=== PATIENT | male | born 1945 | race Caucasian/White ===

== ENCOUNTER 2017-12-25 18:25 | Inpatient (IN) | payer OTHER ==
[~2017-12-25] VITALS: Ht 167.6 cm; Wt 61.7 kg
[2017-12-25 18:25] VITALS: BP_SYST 87
[~2017-12-25 18:25] MED LIST: ASPI-1155 PO; CARV25TA55 PO; CAT.1 PO; CEL250 PO; CLOP75TA2 PO; INSU100V SQ; INSU100V9 SUBCUT; LIP10 PO; LISI10TA5 PO; MYCO500T PO; PRED2.5T4 PO
[2017-12-25 20:12] LABS: BASOPHILS # (AUTO) 0.2 K/uL (0.0-0.2); BASOPHILS % (AUTO) 1.5 % (0.0-2.0); EOSINOPHILS % (AUTO) 0.1 % (0.0-4.0); HEMATOCRIT 40.6 % (36-54); HEMOGLOBIN 13.4 g/dL (14.0-18.0); LYMPHOCYTES # (AUTO) 0.9 K/uL (1.0-5.5); LYMPHOCYTES % (AUTO) 7.1 % (20.5-51.5); MEAN CORPUSCULAR HEMOGLOBIN 30 pg (27-31); MEAN CORPUSCULAR HGB CONC 33 % (32-36); MEAN CORPUSCULAR VOLUME 91 fL (79.0-98.0); MONOCYTES # (AUTO) 1.2 K/uL (0.0-1.0); NEUTROPHILS # (AUTO) 10.8 K/uL (1.8-7.7); NEUTROPHILS % (AUTO) 82.3 % (40.0-70.0); PLATELET COUNT (AUTO) 269 K/uL (130-430); RED BLOOD CELL COUNT(AUTO) 4.45 MIL/uL (4.2-6.2); RED CELL DISTRIBUTION WIDTH 13.7 % (9.0-15.0); WHITE BLOOD COUNT (AUTO) 13.1 K/uL (4.8-10.8)
[2017-12-25 20:16] LABS: ANION GAP 13 (5-15); CALCIUM 9.7 mg/dL (8.4-11.0); CHLORIDE 95 mmol/L (98-107); CREATININE 3.46 mg/dL (0.55-1.30); GLUCOSE 280 mg/dL (70-99); POTASSIUM 4.6 mmol/L (3.5-5.1); SODIUM SERUM 134 mmol/L (136-145); UREA NITROGEN, BLOOD 67 mg/dL (8-21)
[2017-12-25 20:20] LABS: ALANINE AMINOTRANSFERASE 16 U/L (12-78); ALBUMIN 3.3 g/dL (3.4-4.8); ASPARTATE AMINOTRANSFERASE 19 U/L (10-37); TOTAL BILIRUBIN 0.8 mg/dL (0.0-1.0)
[2017-12-25 20:37] LABS: PROTHROMBIN TIME 9.8 SECS (9.5-12.5)
[2017-12-25] MEDS ORDERED: NACL 0.9% 1,000 ML IV ONE (21:00)
[2017-12-25 22:26] LABS: BILIRUBIN,URINE NEGATIVE (NEGATIVE); BLOOD, URINE NEGATIVE (NEGATIVE); CLARITY/URINE CLEAR (CLEAR); COLOR,URINE YELLOW (YELLOW); GLUCOSE,URINE NEGATIVE (NEGATIVE); KETONES,URINE TRACE (NEGATIVE); LEUKOCYTE ESTERASE ,URINE TRACE (NEGATIVE); NITRITE, URINE NEGATIVE (NEGATIVE); PROTEIN URINE 1+ (NEGATIVE)
[2017-12-25] MEDS ORDERED: INSU100I24 SQ (22:44)
[2017-12-25] MEDS ORDERED: SAN100 PO (22:44)
[2017-12-25] MEDS ORDERED: MYCO500T PO (22:45)
[2017-12-25] MEDS ORDERED: CEL250 PO (22:45)
[2017-12-25 22:48] LABS: BACTERIA,URINE FEW /HPF (None Seen); RBC,URINE 0-3 /HPF (0-3)
[2017-12-26] VITALS (7 sets, daily range): BP systolic 105–158
[2017-12-26] MEDS ORDERED: NACL 0.9% 1,000 ML IV ONE (00:15)
[2017-12-26] MEDS ORDERED: ONDANSETRON HCL 4 MG/2 ML VIAL IVP PRN (00:30)
[2017-12-26] MEDS ORDERED: INSULIN LISPRO SQ PRN (00:45)
[2017-12-26] MEDS: NACL 0.9% 1,000 ML IV SCH ×4 (01:54→17:41)
[2017-12-26] MEDS ORDERED: cefTRIAXone 1 GM IVPB PREMIX 50 ML IV ONE (02:14)
[2017-12-26] MEDS: cefTRIAXone 1 GM IVPB PREMIX 50 ML IV SCH ×2 (02:22→21:26)
[2017-12-26] MEDS ORDERED: DEXTROSE 50% JECT 50 ML DISP.SYRIN IVP PRN ×3 (06:30→13:15)
[2017-12-26] MEDS ORDERED: INSULIN REGULAR, HUMAN 100 UNITS/ML, 10 ML VIAL (novoLIN R) SUBCUT PRN (06:30)
[2017-12-26] MEDS: PREDNISONE 5 MG TABLET PO SCH (08:31)
[2017-12-26] MEDS: CLOPIDOGREL BISULFATE 75 MG TABLET PO SCH (08:31)
[2017-12-26] MEDS: ASPIRIN 81 MG TAB.CHEW PO SCH (08:31)
[2017-12-26] MEDS: ATORVASTATIN 10 MG TABLET PO SCH (08:31)
[2017-12-26] MEDS: CARVEDILOL 25 MG TABLET (COREG) PO SCH ×2 (08:32→17:41)
[2017-12-26] MEDS: MYCOPHENOLATE MOFETIL 250 MG CAPSULE PO SCH ×2 (12:09→21:23)
[2017-12-26 13:40] LABS: ANION GAP 11 (5-15); CALCIUM 8.1 mg/dL (8.4-11.0); CHLORIDE 105 mmol/L (98-107); CREATININE 1.65 mg/dL (0.55-1.30); GLUCOSE 276 mg/dL (70-99); POTASSIUM 3.9 mmol/L (3.5-5.1); SODIUM SERUM 137 mmol/L (136-145); UREA NITROGEN, BLOOD 48 mg/dL (8-21)
[2017-12-26 13:57] LABS: FREE T4 (FREE THYROXINE) 0.6 ng/dL (0.6-1.6)
[2017-12-26] MEDS: cycloSPORINE 100 MG CAPSULE PO SCH (21:22)
[2017-12-27] MEDS: NACL 0.9% 1,000 ML IV SCH ×2 (03:27→13:33)
[2017-12-27] MEDS: INSULIN REGULAR, HUMAN 100 UNITS/ML, 10 ML VIAL (novoLIN R) SUBCUT PRN ×3 (06:11→20:53)
[2017-12-27 06:46] LABS: BASOPHILS % (AUTO) 0.3 % (0.0-2.0); EOSINOPHILS # (AUTO) 0.1 K/uL (0.0-0.4); EOSINOPHILS % (AUTO) 1.5 % (0.0-4.0); HEMOGLOBIN 12.6 g/dL (14.0-18.0); LYMPHOCYTES # (AUTO) 0.8 K/uL (1.0-5.5); LYMPHOCYTES % (AUTO) 12.4 % (20.5-51.5); MEAN CORPUSCULAR HEMOGLOBIN 31 pg (27-31); MEAN CORPUSCULAR HGB CONC 34 % (32-36); MEAN CORPUSCULAR VOLUME 92 fL (79.0-98.0); MONOCYTES # (AUTO) 0.8 K/uL (0.0-1.0); MONOCYTES % (AUTO) 12.4 % (1.7-9.3); NEUTROPHILS # (AUTO) 4.9 K/uL (1.8-7.7); NEUTROPHILS % (AUTO) 73.4 % (40.0-70.0); PLATELET COUNT (AUTO) 263 K/uL (130-430); RED BLOOD CELL COUNT(AUTO) 4.02 MIL/uL (4.2-6.2); RED CELL DISTRIBUTION WIDTH 13.6 % (9.0-15.0); WHITE BLOOD COUNT (AUTO) 6.6 K/uL (4.8-10.8)
[2017-12-27 06:50] LABS: ALANINE AMINOTRANSFERASE 15 U/L (12-78); ALBUMIN 2.4 g/dL (3.4-4.8); ANION GAP 6 (5-15); ASPARTATE AMINOTRANSFERASE 14 U/L (10-37); CALCIUM 8.5 mg/dL (8.4-11.0); CHLORIDE 108 mmol/L (98-107); CREATININE 1.03 mg/dL (0.55-1.30); GLUCOSE 222 mg/dL (70-99); POTASSIUM 3.8 mmol/L (3.5-5.1); SODIUM SERUM 139 mmol/L (136-145); TOTAL BILIRUBIN 0.5 mg/dL (0.0-1.0); UREA NITROGEN, BLOOD 28 mg/dL (8-21)
[2017-12-27 08:00] VITALS: BP_SYST 159
[2017-12-27] MEDS: ATORVASTATIN 10 MG TABLET PO SCH (09:33)
[2017-12-27] MEDS: PREDNISONE 5 MG TABLET PO SCH (09:33)
[2017-12-27] MEDS: CLOPIDOGREL BISULFATE 75 MG TABLET PO SCH (09:34)
[2017-12-27] MEDS: CARVEDILOL 25 MG TABLET (COREG) PO SCH ×2 (09:34→17:40)
[2017-12-27] MEDS: ASPIRIN 81 MG TAB.CHEW PO SCH (09:34)
[2017-12-27] MEDS: MYCOPHENOLATE MOFETIL 250 MG CAPSULE PO SCH ×2 (09:35→20:45)
[2017-12-27 11:35] VITALS: BP_SYST 165
[2017-12-27 13:02] LABS: URINE SODIUM, RANDOM 77 mmol/L (40-220)
[2017-12-27 15:31] VITALS: BP_SYST 167
[2017-12-27 20:00] VITALS: BP_SYST 174
[2017-12-27] MEDS: cefTRIAXone 1 GM IVPB PREMIX 50 ML IV SCH (20:45)
[2017-12-27] MEDS: cycloSPORINE 100 MG CAPSULE PO SCH (20:45)
[2017-12-28] VITALS (8 sets, daily range): BP systolic 105–188
[2017-12-28] MEDS: NACL 0.9% 1,000 ML IV SCH
[2017-12-28] MEDS ORDERED: cloNIDine HCL 0.1 MG TABLET PO PRN (00:30)
[2017-12-28] MEDS ORDERED: D5NS 1,000 ML IV SCH (00:30)
[2017-12-28] MEDS ORDERED: hydrALAZINE HCL 25 MG TABLET PO SCH ×2 (01:00→09:00)
[2017-12-28] MEDS: INSULIN REGULAR, HUMAN 100 UNITS/ML, 10 ML VIAL (novoLIN R) SUBCUT PRN ×2 (06:20→17:17)
[2017-12-28 07:24] LABS: BASOPHILS % (AUTO) 0.6 % (0.0-2.0); EOSINOPHILS # (AUTO) 0.1 K/uL (0.0-0.4); EOSINOPHILS % (AUTO) 1.2 % (0.0-4.0); HEMATOCRIT 38.2 % (36-54); HEMOGLOBIN 12.3 g/dL (14.0-18.0); LYMPHOCYTES # (AUTO) 1.1 K/uL (1.0-5.5); LYMPHOCYTES % (AUTO) 15.9 % (20.5-51.5); MEAN CORPUSCULAR HEMOGLOBIN 30 pg (27-31); MEAN CORPUSCULAR HGB CONC 32 % (32-36); MEAN CORPUSCULAR VOLUME 91 fL (79.0-98.0); MONOCYTES # (AUTO) 0.8 K/uL (0.0-1.0); MONOCYTES % (AUTO) 11.7 % (1.7-9.3); NEUTROPHILS # (AUTO) 4.7 K/uL (1.8-7.7); NEUTROPHILS % (AUTO) 70.6 % (40.0-70.0); PLATELET COUNT (AUTO) 260 K/uL (130-430); RED BLOOD CELL COUNT(AUTO) 4.18 MIL/uL (4.2-6.2); RED CELL DISTRIBUTION WIDTH 13.2 % (9.0-15.0); WHITE BLOOD COUNT (AUTO) 6.7 K/uL (4.8-10.8)
[2017-12-28 07:50] LABS: ALANINE AMINOTRANSFERASE 14 U/L (12-78); ALBUMIN 2.4 g/dL (3.4-4.8); ANION GAP 7 (5-15); ASPARTATE AMINOTRANSFERASE 14 U/L (10-37); CALCIUM 8.8 mg/dL (8.4-11.0); CHLORIDE 106 mmol/L (98-107); CREATININE 0.77 mg/dL (0.55-1.30); GLUCOSE 179 mg/dL (70-99); POTASSIUM 3.6 mmol/L (3.5-5.1); SODIUM SERUM 140 mmol/L (136-145); TOTAL BILIRUBIN 0.6 mg/dL (0.0-1.0); UREA NITROGEN, BLOOD 12 mg/dL (8-21)
[2017-12-28] MEDS: CARVEDILOL 25 MG TABLET (COREG) PO SCH ×2 (08:12→17:20)
[2017-12-28] MEDS: MYCOPHENOLATE MOFETIL 250 MG CAPSULE PO SCH (15:04)
[2017-12-28] MEDS: PREDNISONE 5 MG TABLET PO SCH (15:06)
[2017-12-28] MEDS: CLOPIDOGREL BISULFATE 75 MG TABLET PO SCH (15:06)
[2017-12-28] MEDS: ATORVASTATIN 10 MG TABLET PO SCH (15:06)
[2017-12-28] MEDS: ASPIRIN 81 MG TAB.CHEW PO SCH (15:06)
[2017-12-29 13:53] LABS: MICROALBUMIN/CREAT RATIO, UR 123.6 MG/G CRE (0.0-30.0)
[2017-12-29 13:54] LABS: MICROALBUMIN URINE RANDOM 48.2 ug/ml (NOT ESTABLISHED)
== END 2017-12-28 18:55 | disposition home or self-care (01) | DRG 689 ==
LOC: SED 18:25 → SMU 12-26 00:27
PROVIDERS: ADMIT Internal Medicine; ATTEND Internal Medicine
DX: N39.0 Urinary tract infection, site not specified (principal); N17.0 Acute kidney failure with tubular necrosis; Z94.0 Kidney transplant status; I69.351 Hemiplegia and hemiparesis following cerebral infarction affecting right dominant side; E86.0 Dehydration; E11.22 Type 2 diabetes mellitus with diabetic chronic kidney disease; E78.5 Hyperlipidemia, unspecified; J44.9 Chronic obstructive pulmonary disease, unspecified; N18.9 Chronic kidney disease, unspecified; I25.10 Atherosclerotic heart disease of native coronary artery without angina pectoris; G40.909 Epilepsy, unspecified, not intractable, without status epilepticus; D63.8 Anemia in other chronic diseases classified elsewhere; I13.10 Hypertensive heart and chronic kidney disease without heart failure, with stage 1 through stage 4 chronic kidney disease, or unspecified chronic kidney disease; Z79.4 Long term (current) use of insulin; K52.9 Noninfective gastroenteritis and colitis, unspecified
CPT/HCPCS: 36415; 71045; 76700-TC; 76770; 78226; 80048; 80053; 80158; 81000-TC; 82043; 82550-TC; 82570; 82570-TC; 82962; 83036; 83735-TC; 84100-TC; 84302-TC; 84439; 84484; 85025; 85610-TC; 87086; 93005; 96360; 96361; 97116-GP; 99285; A9537; J0696; J1815; J7030; J7042; J7502; J7512; J7517

== ENCOUNTER 2018-09-07 09:00 | Inpatient (IN) | payer OTHER ==
[~2018-09-07] VITALS: Ht 167.6 cm; Wt 71.7 kg
[2018-09-07 09:00] VITALS: BP_SYST 171
[~2018-09-07 09:00] MED LIST changes: -CAT.1 PO; +INSU100I24 SQ; -INSU100V9 SUBCUT; +SAN100 PO
--- NOTE | 2018-09-07 09:00 | NUR ---
BROUGHT BACK TO BED #8 AND TRIAGED. REPORT GIVEN TO IKE
--- NOTE | 2018-09-07 09:20 | NUR ---
Patient is awake, alert, and oriented x4. Patient is complaining of chills, weak joints, body pain since yesterday. Patient presents with generalized body aches 7/10. Patient denies nausea, vomiting, diarrhea.
--- NOTE | 2018-09-07 09:28 | NUR ---
DR SWARTZ AT BEDSIDE FOR EVALUATION
[2018-09-07] MEDS ORDERED: NACL 0.9% 1,000 ML IV ONE (09:45)
[2018-09-07 10:08] LABS: BASOPHILS # (AUTO) 0.1 K/uL (0.0-0.2); BASOPHILS % (AUTO) 0.5 % (0.0-2.0); HEMOGLOBIN 13.8 g/dL (14.0-18.0); LYMPHOCYTES # (AUTO) 0.4 K/uL (1.0-5.5); LYMPHOCYTES % (AUTO) 2.5 % (20.5-51.5); MEAN CORPUSCULAR HEMOGLOBIN 30 pg (27-31); MEAN CORPUSCULAR HGB CONC 33 % (32-36); MEAN CORPUSCULAR VOLUME 92 fL (79.0-98.0); MONOCYTES # (AUTO) 1.4 K/uL (0.0-1.0); MONOCYTES % (AUTO) 7.8 % (1.7-9.3); NEUTROPHILS # (AUTO) 15.5 K/uL (1.8-7.7); NEUTROPHILS % (AUTO) 89.2 % (40.0-70.0); PLATELET COUNT (AUTO) 161 K/uL (130-430); RED BLOOD CELL COUNT(AUTO) 4.58 MIL/uL (4.2-6.2); RED CELL DISTRIBUTION WIDTH 13.6 % (9.0-15.0); WHITE BLOOD COUNT (AUTO) 17.4 K/uL (4.8-10.8)
[2018-09-07 10:11] LABS: ANION GAP 8 (5-15); CALCIUM 9.6 mg/dL (8.4-11.0); CHLORIDE 99 mmol/L (98-107); CREATININE 1.33 mg/dL (0.55-1.30); GLUCOSE 231 mg/dL (70-99); POTASSIUM 4.1 mmol/L (3.5-5.1); SODIUM SERUM 134 mmol/L (136-145); UREA NITROGEN, BLOOD 37 mg/dL (8-21)
[2018-09-07 10:14] LABS: PROTHROMBIN TIME 9.8 SECS (9.5-12.5)
[2018-09-07 10:16] LABS: ALANINE AMINOTRANSFERASE 25 U/L (12-78); ALBUMIN 2.7 g/dL (3.4-4.8); ASPARTATE AMINOTRANSFERASE 17 U/L (10-37); TOTAL BILIRUBIN 1.5 mg/dL (0.0-1.0)
[2018-09-07 11:15] LABS: BILIRUBIN,URINE NEGATIVE (NEGATIVE); BLOOD, URINE 2+ (NEGATIVE); COLOR,URINE YELLOW (YELLOW); GLUCOSE,URINE 1+ (NEGATIVE); KETONES,URINE NEGATIVE (NEGATIVE); LEUKOCYTE ESTERASE ,URINE NEGATIVE (NEGATIVE); NITRITE, URINE NEGATIVE (NEGATIVE); PROTEIN URINE 2+ (NEGATIVE)
[2018-09-07 11:36] LABS: CLARITY/URINE SLIGHTLY HAZY (CLEAR)
[2018-09-07 11:40] LABS: BACTERIA,URINE RARE /HPF (None Seen); WBC,URINE 0-3 /HPF (0-3)
[2018-09-07] MEDS ORDERED: cefTRIAXone 1 GM IVPB PREMIX 50 ML IV ONE (11:45)
[2018-09-07] MEDS ORDERED: PRED5TAB PO (14:27)
[2018-09-07] MEDS ORDERED: INSU300I3 SQ (14:27)
[2018-09-07] MEDS ORDERED: CYCL25CA PO (14:27)
[2018-09-07] MEDS ORDERED: CHOL500052 PO (14:27)
[2018-09-07] MEDS ORDERED: LIP10 PO (14:27)
[2018-09-07] MEDS ORDERED: LISI10TA PO (14:27)
--- NOTE | 2018-09-07 14:28 | NUR ---
Medication reconciliation completed with information provided by pt. Any prior medication reconciliation on file was reviewed and corrected.
--- NOTE | 2018-09-07 14:47 | NUR ---
Patient will be admitted to care of [facility]. Admitted to Telemetry unit. Will go to room 107A. Belongings list completed. Summary report printed. Report will be given at bedside.
--- NOTE | 2018-09-07 15:00 | NUR ---
Patient transferred via rblanca, mobile monitor, 2 RNs. Report given to JESSICA Rousseau for continuation of care.
--- NOTE | 2018-09-07 15:01 | NUR ---
ADMISSION NOTE Received patient from ER via rayshawn, received report from Elza LOPEZ. Patient admitted with diagnosis of Sepsis, UTI. Patient oriented to hospital routine, call light, toileting and safety-patient verbalized understanding.
[2018-09-07 15:16] VITALS: BP_SYST 190
[2018-09-07] MEDS ORDERED: cloNIDine HCL 0.1 MG TABLET PO PRN (17:00)
[2018-09-07] MEDS ORDERED: ONDANSETRON HCL 4 MG/2 ML VIAL IVP PRN (17:45)
[2018-09-07] MEDS ORDERED: HYDROcodone/ACETAMIN 5-325 MG TAB (NORCO/ VICODIN) PO PRN (17:45)
[2018-09-07] MEDS ORDERED: ACETAMINOPHEN 325 MG TABLET PO PRN (17:45)
[2018-09-07] MEDS ORDERED: HYDROcodone/ACETAMIN 10-325 MG TAB PO PRN (17:45)
[2018-09-07] MEDS ORDERED: LORazepam 2 MG/ML VIAL IVP PRN (17:45)
[2018-09-07 17:50] VITALS: BP_SYST 170
--- NOTE | 2018-09-07 18:27 | NUR ---
CLOSING NOTE: PATIENT IS RESTING COMFORTABLY IN BED. NO S/S OF DISTRESS OR SOB. PATIENT IS ALERT AND ORIENTED. FAMILY IS AT BEDSIDE. ALL NEEDS MET DURING SHIFT. CALL LIGHT IN REACH, BED IN LOWEST POSITION, AND WILL GIVE REPORT TO NIGHT NURSE.
[2018-09-07] MEDS: INSULIN LISPRO SLIDING SCALE 100 UNITS/ML VIAL (humaLOG) SUBCUT PRN (18:42)
[2018-09-07 18:45] VITALS: BP_SYST 161
--- NOTE | 2018-09-07 18:52 | NUR ---
RENAL ULTRASOUND BEING DONE AT BEDSIDE.
--- NOTE | 2018-09-07 18:56 | NUR ---
1800 MEDICATION LISINOPRIL SCHEDULED FRO 1800 WAS JUST VERIFIED BY PHARMACY. PATIENT IS CURRENTLY RECEIVING ULTRASOUND. WILL ENDORSE MEDICATION TO BARREL RAISER.
[2018-09-07] MEDS ORDERED: D5W 1,000 ML IV PRN (19:45)
[2018-09-07] MEDS ORDERED: DEXTROSE 50%-WATER 50 ML DISP.SYRIN IVP PRN (19:45)
[2018-09-07] MEDS ORDERED: GLUCOSE 15 GM GEL (in 37.5 GM TUBE) PO PRN (19:45)
[2018-09-07 20:00] VITALS: BP_SYST 157
--- NOTE | 2018-09-07 20:00 | NUR ---
INITIAL NOTES: PATIENT IN BED EYES CLOSE,AROUSABLE,FEELING WEAK,VITAL SIGNS TAKEN. LOW GRADE FEVER. NO CHILLS. A/O X3. SALINE LOCK TO LEFT HAND. CALL LIGHT WITHIN REACH. BED IN LOW POSITION. DENIES SOB NOR PAIN.WILL MONITOR CLOSELY.SEE ASSESSMENT FOR MORE DETAILS.
--- NOTE | 2018-09-07 20:15 | NUR ---
CONSULTATION PAGED/CALLED Reason for Consultation: LUIZ Person Who was Notified: OSVALDO Consulting Physician: SANDI HERNANDEZ IS PORTUGUESE TUTOR Offshore Wind Operations Manager Specialty: Ordering Physician: MARINA
--- NOTE | 2018-09-07 20:27 | NUR ---
CONSULTATION PAGED/CALLED Reason for Consultation: HYPERTENSION Person Who was Notified: RAVI Consulting Physician: PALIWAL. Baig Powder Blender And Pourer Specialty: Ordering Physician: PALIWAL. Dwyer
--- NOTE | 2018-09-07 20:28 | NUR ---
CONSULTATION PAGED/CALLED Reason for Consultation: SEPSIS/UTI Person Who was Notified: OSVALDO Consulting Physician: JB Processing Assistant Specialty: ID Ordering Physician: MARINA
[2018-09-07] MEDS ORDERED: NEORAL PO SCH (21:00)
[2018-09-07] MEDS ORDERED: cycloSPORINE 100 MG CAPSULE PO SCH (21:00)
[2018-09-07] MEDS ORDERED: LISINOPRIL 5 MG TABLET PO SCH (21:00)
[2018-09-07] MEDS: MYCOPHENOLATE MOFETIL 250 MG CAPSULE PO SCH (22:02)
[2018-09-07] MEDS: CARVEDILOL 25 MG TABLET (COREG) PO SCH (22:03)
[2018-09-07] MEDS: LISINOPRIL 10 MG TABLET (PRINIVIL) PO SCH (22:06)
[2018-09-07] MEDS: ACETAMINOPHEN 325 MG TABLET PO PRN (22:07)
--- NOTE | 2018-09-07 22:20 | NUR ---
ALL DUE MEDS GIVEN AFTER EDUCATING PATIENT EFFECTS AND SIDE EFFECTS. ROOM AIR.
--- NOTE | 2018-09-08 00:30 | NUR ---
PATIENT SLEEPING THIS TIME SNORING.
[2018-09-08 01:24] VITALS: BP_SYST 113
--- NOTE | 2018-09-08 04:33 | NUR ---
RECEIVED A +BLOOD CULTURE FROM ANAEROBIC, GRAM NEG RODS @9449 09/07/18 FROM [facility] . JOB RECRUITER AWARE.
[2018-09-08 04:35] VITALS: BP_SYST 158
--- NOTE | 2018-09-08 05:07 | NUR ---
PAGED SHAYAN CERVANTES.
--- NOTE | 2018-09-08 05:15 | NUR ---
Yuliya CERVANTES, CALLED BACK,INFORMED POSITIVE BLOOD CULTURE DRAWN YESTERDAY 09/07/18 @0930 GRAM NEG. RODS. ORDERED TO INFORM DR. HERNANDEZ THIS MORNING.
[2018-09-08] MEDS: INSULIN LISPRO SLIDING SCALE 100 UNITS/ML VIAL (humaLOG) SUBCUT PRN ×4 (06:29→20:10)
[2018-09-08 06:46] LABS: BASOPHILS % (AUTO) 0.5 % (0.0-2.0); EOSINOPHILS % (AUTO) 0.3 % (0.0-4.0); HEMOGLOBIN 13.6 g/dL (14.0-18.0); LYMPHOCYTES # (AUTO) 0.4 K/uL (1.0-5.5); LYMPHOCYTES % (AUTO) 4.2 % (20.5-51.5); MEAN CORPUSCULAR HEMOGLOBIN 30 pg (27-31); MEAN CORPUSCULAR HGB CONC 33 % (32-36); MEAN CORPUSCULAR VOLUME 92 fL (79.0-98.0); MONOCYTES # (AUTO) 1.4 K/uL (0.0-1.0); MONOCYTES % (AUTO) 13.9 % (1.7-9.3); NEUTROPHILS # (AUTO) 8.2 K/uL (1.8-7.7); NEUTROPHILS % (AUTO) 81.1 % (40.0-70.0); PLATELET COUNT (AUTO) 151 K/uL (130-430); RED BLOOD CELL COUNT(AUTO) 4.46 MIL/uL (4.2-6.2); WHITE BLOOD COUNT (AUTO) 10.1 K/uL (4.8-10.8)
[2018-09-08 07:00] LABS: ANION GAP 5 (5-15); CALCIUM 9.2 mg/dL (8.4-11.0); CHLORIDE 101 mmol/L (98-107); CREATININE 1.21 mg/dL (0.55-1.30); GLUCOSE 203 mg/dL (70-99); PHOSPHORUS 3.1 mg/dL (2.7-4.5); POTASSIUM 3.9 mmol/L (3.5-5.1); SODIUM SERUM 135 mmol/L (136-145); UREA NITROGEN, BLOOD 29 mg/dL (8-21)
--- NOTE | 2018-09-08 07:00 | NUR ---
CLOSING: NO ACUTE CARDIOPULMONARY DISTRESS. NO S/S OF HYPOGLYCEMIA. ALL NEEDS WERE MET. WILL ENDORSE CARE TO AM RN .HAD SLIGHT CHILLS AT 0400 AFTER CHANGING WT GOWN.
--- NOTE | 2018-09-08 07:15 | NUR ---
OPENING NOTE Patient resting in the bed. No acute distress. Respiration even and unlabored. AAO x 4. Denied of pain or chills at this time. Skin warm and dry to touch. SL intact to left hand, no redness, no swelling. Per patient his nephrology is Dr. Velazquez not Dr. Tucker, will notify Dr. Bernardo. Discussed the safety issue, use call light when needs help, and plan of care, verbally understanding. Safety measure maintained. Call light within reached. Bed locked in low position, side rails up. Will continue to monitor.
--- NOTE | 2018-09-08 07:19 | NUR ---
PAGED PAGED SHAYAN VIGIL AT [phone] SPOKE WITH KATERYNA.
--- NOTE | 2018-09-08 07:28 | NUR ---
CALLED BACK FROM SHAYAN CERVANTES Received the call back grom Dr. Bernardo. Informed to Dr. Bernardo per patient his nephrology is Jae Franks not Dr. Tucker. Dr. Bernardo with order nephrology consult of Jae Franks instead of Dr. Tucker. Order noted and carried out.
--- NOTE | 2018-09-08 07:39 | NUR ---
CONSULTATION PAGED REASON FOR CONSULTATION: REQUESTING DR: DR OQUENDO A CONSULTING DR: DR DE LA GARZA SPOKE WITH YEN TOMAS IS LEAD ELECTRICAL CONTROLS ENGINEER
[2018-09-08 08:12] LABS: C-REACTIVE PROTEIN QUANT 22.2 mg/dL (0-0.5)
--- NOTE | 2018-09-08 08:25 | NUR ---
PAGED PAGED NASEEM GREEN AT [phone] SPOKE WITH JOE.
[2018-09-08 08:31] LABS: ERYTHROCYTE SEDIMENTATION RATE 31 MM/HR (0-15)
[2018-09-08] MEDS: cefTRIAXone 1 GM IVPB PREMIX 50 ML IV SCH (08:59)
[2018-09-08] MEDS: CHOLECALCIFEROL (VITAMIN D3) 2,000 UNIT TABLET PO SCH (08:59)
[2018-09-08] MEDS: ASPIRIN 81 MG TAB.CHEW PO SCH (08:59)
[2018-09-08] MEDS: PREDNISONE 5 MG TABLET PO SCH (09:00)
[2018-09-08] MEDS ORDERED: ATORVASTATIN 10 MG TABLET PO SCH (09:00)
[2018-09-08] MEDS ORDERED: INSULIN GLARGINE HUM REC ANLOG 48 UNIT SQ SCH (09:00)
[2018-09-08] MEDS ORDERED: NON-FORMULARY MEDICATION (Prednisone 5 MG) PO SCH (09:00)
[2018-09-08] MEDS: CARVEDILOL 25 MG TABLET (COREG) PO SCH ×2 (09:00→20:11)
[2018-09-08] MEDS: CLOPIDOGREL BISULFATE 75 MG TABLET PO SCH (09:00)
[2018-09-08] MEDS: ATORVASTATIN 20 MG TABLET PO SCH (09:01)
[2018-09-08] MEDS: MYCOPHENOLATE MOFETIL 250 MG CAPSULE PO SCH ×2 (09:01→20:11)
[2018-09-08] MEDS: INSULIN GLARGINE 100 UNITS/ML 10 ML VIAL SUBCUT SCH (09:04)
[2018-09-08 10:38] VITALS: BP_SYST 148
--- NOTE | 2018-09-08 10:38 | NUR ---
2ND PAGE OUT TO NASEEM HAMMER AT [phone] SPOKE WITH SIRENA.
--- NOTE | 2018-09-08 10:39 | NUR ---
SEEN AND EXAMINED BY VIRIDIANA CERVANTES. WILL CHECK ORDER.
[2018-09-08] MEDS ORDERED: amLODIPine BESYLATE 5 MG TABLET PO ONE (11:00)
--- NOTE | 2018-09-08 11:27 | NUR ---
JB YOU DEEPTHI CALLED BACK REGARDING POSITIVE BLOOD CULTURE Received the call back from Dr. Meyers, reported to Jb You patient with positive blood culture of gram negative rods from anaerobic bottles. Patient on Rocephin 1gm IVPB Q24hr, dose already given this morning. Dr. Meyers stated will come to see the patient.
--- NOTE | 2018-09-08 11:55 | NUR ---
SEEN AND EXAMINED BY NASEEM JACOBSON. WILL CHECK ORDER.
[2018-09-08] MEDS ORDERED: GENTAMICIN 100 mg/50 mL NS 50 ML IV ONE (12:00)
[2018-09-08 12:01] VITALS: BP_SYST 147
--- NOTE | 2018-09-08 13:10 | NUR ---
ULTRASOUND OF DOPPLER TO BILATERAL LOWER EXTREMITIES DONE AT BEDSIDE.
--- NOTE | 2018-09-08 13:37 | NUR ---
Dietitian Recommendations * Recommend cardiac, CCHO diet w/ Glucerna BID (ONS provides an additional 440 kcal/day and 20 gm protein/day) LP, RD Please refer to Nutrition Assessment for details.
[2018-09-08 15:17] VITALS: BP_SYST 145
--- NOTE | 2018-09-08 15:25 | NUR ---
ROUND Patient resting in the bed comfortable. No acute distress. at bedside. Safety measure maintained. Call light within reached. Continue to monitor.
[2018-09-08] MEDS: LISINOPRIL 10 MG TABLET (PRINIVIL) PO SCH (17:41)
--- NOTE | 2018-09-08 18:00 | NUR ---
SHAYAN CERVANTES IN THE UNIT SHOWN THE RESULT OF ULTRASOUND DROPPER OF BILATERAL LOWER EXTREMITIES.
--- NOTE | 2018-09-08 18:05 | NUR ---
SEEN ANS EXAMINED BY SHAYAN CERVANTES WITH ORDER D/C TELE, CHANGE TO MED SURG.
--- NOTE | 2018-09-08 18:57 | NUR ---
CLOSING NOTE Patient resting in the bed. No acute distress. Respiration even and unlabored. Denied of pain or chills. Skin warm and dry to touch. SL intact to left hand, no redness, no swelling. at bedside. All needs met. Safety measure maintained. Call light within reached. Bed locked in low position, side rails up. Will endorse to night nurse.
--- NOTE | 2018-09-08 19:30 | NUR ---
Initial Notes Received handoff report from offgoing nurse at the bedside. Patient is awake and alert, resting comfortably in bed. No SOB, no acute distress, no complaints of pain at this time. Bed is locked, in the lowest position, 2x side rails up, bed alarm is on. Urinal and care are at the bedside within reach. Call light is within reach. Encouraged patient to call for assistance. Will continue with plan of care.
[2018-09-08 20:00] VITALS: BP_SYST 138
[2018-09-08] MEDS: ACETAMINOPHEN 325 MG TABLET PO PRN (20:12)
--- NOTE | 2018-09-08 21:31 | NUR ---
Patient is resting comfortably in bed with eyes closed. No SOB, no acute distress, no signs of pain or facial grimacing noted. Breathing even and unlabored with visible chest rise and fall noted. Call light within reach.
--- NOTE | 2018-09-09 | NUR ---
Patient requested for midnight snacks. Provided patient with leon crackers and apple juice. Patient also wanted cranberry juice, but currently we are out of stock. Patient was understanding, and stated apple juice is okay.
[2018-09-09 01:13] VITALS: BP_SYST 104
--- NOTE | 2018-09-09 01:43 | NUR ---
Patient resting comfortably in bed, eyes closed. Breathing even and unlabored with visible chest rise and fall noted. No SOB, no acute distress, no signs of pain or facial grimacing noted. Bed is locked, in the lowest position, 2x side rails up. Call light within reach.
--- NOTE | 2018-09-09 04:07 | NUR ---
Patient spilled water on his gown. Assisted patient with partial bed bath. Patient is now clean and dry, Gown changed due to soilage. Now resting comfortably in bed. Call light within reach. Encouraged patient to call for assistance.
[2018-09-09] MEDS: INSULIN LISPRO SLIDING SCALE 100 UNITS/ML VIAL (humaLOG) SUBCUT PRN ×4 (06:10→21:08)
[2018-09-09] MEDS: ACETAMINOPHEN 325 MG TABLET PO PRN (06:11)
[2018-09-09 06:30] LABS: BASOPHILS % (AUTO) 0.4 % (0.0-2.0); EOSINOPHILS # (AUTO) 0.1 K/uL (0.0-0.4); EOSINOPHILS % (AUTO) 1.2 % (0.0-4.0); HEMATOCRIT 43.4 % (36-54); HEMOGLOBIN 14.2 g/dL (14.0-18.0); LYMPHOCYTES # (AUTO) 0.8 K/uL (1.0-5.5); LYMPHOCYTES % (AUTO) 9.4 % (20.5-51.5); MEAN CORPUSCULAR HEMOGLOBIN 30 pg (27-31); MEAN CORPUSCULAR HGB CONC 33 % (32-36); MEAN CORPUSCULAR VOLUME 92 fL (79.0-98.0); MONOCYTES # (AUTO) 1.5 K/uL (0.0-1.0); MONOCYTES % (AUTO) 17.5 % (1.7-9.3); PLATELET COUNT (AUTO) 181 K/uL (130-430); RED BLOOD CELL COUNT(AUTO) 4.73 MIL/uL (4.2-6.2); RED CELL DISTRIBUTION WIDTH 13.7 % (9.0-15.0); WHITE BLOOD COUNT (AUTO) 8.3 K/uL (4.8-10.8)
--- NOTE | 2018-09-09 06:32 | NUR ---
Closing Notes Patient resting comfortably in bed, awake and alert. No SOB, no acute distress. Recently medicated for headache pain, see eMAR. IV site dressing is clean and dry. Bed is locked, in the lowest position, 2x side rails up, bed alarm is on. Call light within reach. Fall and safety precautions maintained. All needs have been met during this shift. Will endorse care to oncoming dayshift nurse.
[2018-09-09 07:06] LABS: ANION GAP 4 (5-15); CALCIUM 9.5 mg/dL (8.4-11.0); CHLORIDE 102 mmol/L (98-107); CREATININE 1.14 mg/dL (0.55-1.30); GLUCOSE 219 mg/dL (70-99); PHOSPHORUS 3.5 mg/dL (2.7-4.5); POTASSIUM 3.8 mmol/L (3.5-5.1); SODIUM SERUM 135 mmol/L (136-145); UREA NITROGEN, BLOOD 32 mg/dL (8-21)
--- NOTE | 2018-09-09 07:10 | NUR ---
received patient asleep but verbalized weak still. breathing even and unlabored.
[2018-09-09 07:45] LABS: C-REACTIVE PROTEIN QUANT 15.1 mg/dL (0-0.5)
[2018-09-09 08:09] VITALS: BP_SYST 155
--- NOTE | 2018-09-09 09:00 | NUR ---
medication given as ordered. no iv access. pull out by the patient.
[2018-09-09] MEDS: ASPIRIN 81 MG TAB.CHEW PO SCH (09:07)
[2018-09-09] MEDS: CHOLECALCIFEROL (VITAMIN D3) 2,000 UNIT TABLET PO SCH (09:08)
[2018-09-09] MEDS: CARVEDILOL 25 MG TABLET (COREG) PO SCH ×2 (09:08→21:01)
[2018-09-09] MEDS: CLOPIDOGREL BISULFATE 75 MG TABLET PO SCH (09:09)
[2018-09-09] MEDS: ATORVASTATIN 20 MG TABLET PO SCH (09:09)
[2018-09-09] MEDS: amLODIPine BESYLATE 5 MG TABLET PO SCH (09:09)
[2018-09-09] MEDS: PREDNISONE 5 MG TABLET PO SCH (09:10)
[2018-09-09] MEDS: MYCOPHENOLATE MOFETIL 250 MG CAPSULE PO SCH ×2 (09:11→21:02)
[2018-09-09] MEDS: cefTRIAXone 1 GM IVPB PREMIX 50 ML IV SCH (09:19)
[2018-09-09] MEDS: INSULIN GLARGINE 100 UNITS/ML 10 ML VIAL SUBCUT SCH (09:20)
[2018-09-09 09:36] LABS: ERYTHROCYTE SEDIMENTATION RATE 35 MM/HR (0-15)
--- NOTE | 2018-09-09 10:00 | NUR ---
Dee RN placed a new iv access on the left hand #22.
[2018-09-09 10:16] LABS: NEUTROPHILS % (AUTO) 71.5 % (40.0-70.0)
--- NOTE | 2018-09-09 12:00 | NUR ---
eating lunch. latest bs 206mg/dl. coverage given.
[2018-09-09 12:35] VITALS: BP_SYST 138
--- NOTE | 2018-09-09 14:00 | NUR ---
resting no pain noted.
--- NOTE | 2018-09-09 16:00 | NUR ---
asleep no distress noted.
[2018-09-09 16:42] VITALS: BP_SYST 123
[2018-09-09] MEDS: LISINOPRIL 10 MG TABLET (PRINIVIL) PO SCH (17:54)
--- NOTE | 2018-09-09 18:00 | NUR ---
latest bs is 206mg/dl. coverage given.
--- NOTE | 2018-09-09 19:00 | NUR ---
closing patient is stable. all needs are met. bed in low position. still with saline lock left hand dry/intact. bed in low position. urinating at the urinal. gianna urine. call lights wihin reach. safety precautions maintained.
--- NOTE | 2018-09-09 19:15 | NUR ---
endorsed to incoming nurse Rhea LOPEZ
--- NOTE | 2018-09-09 20:15 | NUR ---
INITIAL NOTES: RECEIVED REPORT AND PATIENT FROM JESSICA MADERA.PATIENT WAS RESTING QUIETELY BUT EASILY AROUSED.DENIES PAIN NOR SOB. FEELING STILL WEAK ,BETTER COMPARED ON ADMISSION.CALL LIGHT WITHIN REACH. BED ALARM ON. BED IN LOW POSITION. WILL MONITOR CLOSELY.
[2018-09-09 20:20] VITALS: BP_SYST 159
--- NOTE | 2018-09-09 21:35 | NUR ---
ACCU CHECK: BLOOD SUGAR 291MG/DL. COVERAGE GIVEN PER SLIDING SCALE.CONVERSANT THIS TIME.
--- NOTE | 2018-09-09 22:20 | NUR ---
NUTRITION: ANA CRACKERS SUGAR FREE JELLO GIVEN FOR SNACKS. EDUCATED ON S/S OF HYPOGLYCEMIA,RECEPTIVE.
[2018-09-10 00:13] VITALS: BP_SYST 132
--- NOTE | 2018-09-10 00:30 | NUR ---
ROUNDS: PATIENT RESTING WITH EYES CLOSE. BREATHING PATTERN REGULAR. CALL LIGHT WITHIN REACH. VOIDED VIA URINAL.
--- NOTE | 2018-09-10 03:00 | NUR ---
ROUNDS: SLEEPING WITH SNORE. BREATHING REGULARLY.
[2018-09-10 06:20] LABS: BASOPHILS % (AUTO) 0.2 % (0.0-2.0); EOSINOPHILS # (AUTO) 0.1 K/uL (0.0-0.4); EOSINOPHILS % (AUTO) 1.1 % (0.0-4.0); HEMATOCRIT 41.7 % (36-54); LYMPHOCYTES # (AUTO) 0.8 K/uL (1.0-5.5); LYMPHOCYTES % (AUTO) 9.6 % (20.5-51.5); MEAN CORPUSCULAR HEMOGLOBIN 30 pg (27-31); MEAN CORPUSCULAR HGB CONC 34 % (32-36); MEAN CORPUSCULAR VOLUME 90 fL (79.0-98.0); MONOCYTES # (AUTO) 1.1 K/uL (0.0-1.0); NEUTROPHILS # (AUTO) 6.2 K/uL (1.8-7.7); NEUTROPHILS % (AUTO) 76.1 % (40.0-70.0); PLATELET COUNT (AUTO) 207 K/uL (130-430); RED BLOOD CELL COUNT(AUTO) 4.61 MIL/uL (4.2-6.2); RED CELL DISTRIBUTION WIDTH 13.6 % (9.0-15.0); WHITE BLOOD COUNT (AUTO) 8.2 K/uL (4.8-10.8)
--- NOTE | 2018-09-10 06:40 | NUR ---
CLOSING: BLOOD SUGAR THIS AM IS 139MG/DL. NO COVERAGE.NO ACUTE CARDIOPULMONARY DISTRESS.SLEPT AT LONG INTERVALS. ALL NEEDS WERE ATTENDED.VOIDED FREELY DARK CHEO.NO S/S OF HYPOGLYCEMIA. WILL ENDORSE CARE TO AM RN . SALINE LOCK PATENT.
[2018-09-10 06:52] LABS: ANION GAP 3 (5-15); CALCIUM 9.9 mg/dL (8.4-11.0); CHLORIDE 101 mmol/L (98-107); CREATININE 1.14 mg/dL (0.55-1.30); GLUCOSE 149 mg/dL (70-99); POTASSIUM 3.8 mmol/L (3.5-5.1); SODIUM SERUM 134 mmol/L (136-145); UREA NITROGEN, BLOOD 34 mg/dL (8-21)
[2018-09-10 06:56] LABS: ALANINE AMINOTRANSFERASE 25 U/L (12-78); ALBUMIN 2.3 g/dL (3.4-4.8); ASPARTATE AMINOTRANSFERASE 15 U/L (10-37); C-REACTIVE PROTEIN QUANT 8.2 mg/dL (0-0.5); TOTAL BILIRUBIN 0.6 mg/dL (0.0-1.0)
[2018-09-10 08:00] VITALS: BP_SYST 169
--- NOTE | 2018-09-10 08:00 | NUR ---
AM NOTES IN BED AWAKE, STILL FEELS WEAK, DENIES ANY CHEST PAIN OR SHORTNESS OF BREATH. NO ACUTE DISTRESS NOTED. SAFETY PRECAUTION OBSERVED. CALL LIGHT WITHIN REACH. ENC TO CALL FOR HELP NEEDED. WILL MONITOR.
[2018-09-10 08:01] LABS: ERYTHROCYTE SEDIMENTATION RATE 28 MM/HR (0-15)
[2018-09-10] MEDS: cefTRIAXone 1 GM IVPB PREMIX 50 ML IV SCH (08:49)
[2018-09-10] MEDS: PREDNISONE 5 MG TABLET PO SCH (08:50)
[2018-09-10] MEDS: CLOPIDOGREL BISULFATE 75 MG TABLET PO SCH (08:50)
[2018-09-10] MEDS: ASPIRIN 81 MG TAB.CHEW PO SCH (08:50)
[2018-09-10] MEDS: CHOLECALCIFEROL (VITAMIN D3) 2,000 UNIT TABLET PO SCH (08:50)
[2018-09-10] MEDS: ATORVASTATIN 20 MG TABLET PO SCH (08:50)
[2018-09-10] MEDS: CARVEDILOL 25 MG TABLET (COREG) PO SCH ×2 (08:51→20:38)
[2018-09-10] MEDS: amLODIPine BESYLATE 5 MG TABLET PO SCH (08:51)
[2018-09-10] MEDS: MYCOPHENOLATE MOFETIL 250 MG CAPSULE PO SCH ×3 (08:52→20:39)
[2018-09-10] MEDS: INSULIN GLARGINE 100 UNITS/ML 10 ML VIAL SUBCUT SCH (08:53)
[2018-09-10 11:30] VITALS: BP_SYST 145
--- NOTE | 2018-09-10 11:30 | NUR ---
notes- In bed, resting. denies any pain. blood sugar is 232, covered with insulin as ordered. patient does not need anything at this time. Enc to call foe help as needed.
[2018-09-10] MEDS: INSULIN LISPRO SLIDING SCALE 100 UNITS/ML VIAL (humaLOG) SUBCUT PRN ×3 (11:49→20:44)
--- NOTE | 2018-09-10 12:09 | NUR ---
Notes- physical therapy at bedside. working with patient at this time.
--- NOTE | 2018-09-10 14:45 | NUR ---
notes- resting in bed, denies any pain or discomfort. Seen by DR. Bernardo at bedside.
--- NOTE | 2018-09-10 15:35 | NUR ---
DC Planning: Notified pt's /Eliz for dcp to snf, spouse requested pt dc to [facility] , . >> Faxed the referral package to [facility] intake # [phone], tel # [phone]. Cm to f/u, Addendum: 09/10/18 at 1619 by Raf Hughes RN >> Per Nori at [facility]: the pt is accepted, assigned room # 26 A , bed available now. RN to report # [phone]. JESSICA Boland made aware. She will call dr. Bernardo for the final dc order and to arrange ambulance once received the order. Dc package delivered to [facility] unit.
[2018-09-10 15:37] VITALS: BP_SYST 136
--- NOTE | 2018-09-10 16:50 | NUR ---
Notes- Spoke to Dr. Bernardo and made aware that patient's is accepted [facility]. MD stated to discharge patient in AM.
[2018-09-10] MEDS: LISINOPRIL 10 MG TABLET (PRINIVIL) PO SCH (17:43)
--- NOTE | 2018-09-10 17:52 | NUR ---
Notes- Per , patient's take cellcept 750mg 2x a day, morning and evening.
--- NOTE | 2018-09-10 18:28 | NUR ---
Notes- In bed, eating dinner. denies any pain or discomfort. afebrile. family at bedside. Cellcept dosage change as ordered.
--- NOTE | 2018-09-10 19:30 | NUR ---
ROUNDS PATIENT IN BED, AWAKE, ALERT, ORIENTED, NOT IN DISTRESS, VITALS STABLE. DENIES ANY PAIN AND DISCOMFORT AT THIS TIME. ASSESSMENT DONE AND DOCUMENTED. SEE FLOWSHEET. NEEDS ATTENDED TO. SAFETY AND FALL PRECAUTION MEASURES IN PLACED. CALL LIGHT PLACED WITHIN REACH.
[2018-09-10 20:00] VITALS: BP_SYST 156
--- NOTE | 2018-09-10 21:03 | NUR ---
ACCU CHECK ACCU CHECK DONE, BLOOD SUGAR 207 WITH 4 UNITS HUMALOG GIVEN SUBCU PER SLIDING SCALE. WILL CONTINUE TO MONITOR.
--- NOTE | 2018-09-11 00:14 | NUR ---
PATIENT RESTING: Patient resting quietly. No acute distress noted. Vital signs within normal range.
--- NOTE | 2018-09-11 02:11 | NUR ---
ROUNDS PATIENT ASLEEP, RESPIRATIONS EVEN AND UNLABORED, NO SIGNS OF ANY PAIN AND DISCOMFORT NOTED. WILL CONTINUE TO MONITOR.
[2018-09-11 02:26] VITALS: BP_SYST 138
--- NOTE | 2018-09-11 04:23 | NUR ---
ROUNDS PATIENT ASLEEP, NOT IN DISTRESS, NO SIGNS OF ANY PAIN AND DISCOMFORT NOTED. WILL CONTINUE TO MONITOR.
--- NOTE | 2018-09-11 05:59 | NUR ---
CLOSING NOTES PATIENT AWAKE, VITALS STABLE, NO PAIN AT THIS TIME. ACCU CHECK DONE, BLOOD SUGAR 83, DENIES ANY SIGNS AND SYMPTOMS OF HYPOGLYCEMIA. ORANGE JUICE AND ANA CRACKERS OFFERED. ALL NEEDS ATTENDED TO. CALL LIGHT PLACED WITHIN REACH.
[2018-09-11 06:58] LABS: BASOPHILS % (AUTO) 0.4 % (0.0-2.0); EOSINOPHILS # (AUTO) 0.1 K/uL (0.0-0.4); EOSINOPHILS % (AUTO) 1.2 % (0.0-4.0); HEMATOCRIT 44.6 % (36-54); HEMOGLOBIN 14.6 g/dL (14.0-18.0); LYMPHOCYTES # (AUTO) 1.3 K/uL (1.0-5.5); LYMPHOCYTES % (AUTO) 15.1 % (20.5-51.5); MEAN CORPUSCULAR HEMOGLOBIN 30 pg (27-31); MEAN CORPUSCULAR HGB CONC 33 % (32-36); MEAN CORPUSCULAR VOLUME 91 fL (79.0-98.0); MONOCYTES % (AUTO) 11.8 % (1.7-9.3); NEUTROPHILS # (AUTO) 6.1 K/uL (1.8-7.7); NEUTROPHILS % (AUTO) 71.5 % (40.0-70.0); PLATELET COUNT (AUTO) 251 K/uL (130-430); RED BLOOD CELL COUNT(AUTO) 4.88 MIL/uL (4.2-6.2); RED CELL DISTRIBUTION WIDTH 13.5 % (9.0-15.0); WHITE BLOOD COUNT (AUTO) 8.5 K/uL (4.8-10.8)
[2018-09-11] MEDS ORDERED: AMLO5TAB4 PO (07:04)
[2018-09-11] MEDS ORDERED: ROCPM1 IV (07:04)
[2018-09-11 07:30] LABS: ANION GAP 6 (5-15); C-REACTIVE PROTEIN QUANT 4.6 mg/dL (0-0.5); CALCIUM 9.7 mg/dL (8.4-11.0); CHLORIDE 104 mmol/L (98-107); GLUCOSE 90 mg/dL (70-99); PHOSPHORUS 3.5 mg/dL (2.7-4.5); POTASSIUM 3.7 mmol/L (3.5-5.1); SODIUM SERUM 138 mmol/L (136-145); UREA NITROGEN, BLOOD 32 mg/dL (8-21)
--- NOTE | 2018-09-11 07:44 | NUR ---
Notes- In bed, awake. Denies any pain or discomfort. no distress noted. Seen by Dr. Bernardo and ordered discharge. Patient aware and agreeable. safety precaution observed. call light in reach. will monitor.
[2018-09-11 07:50] VITALS: BP_SYST 147
[2018-09-11 08:09] VITALS: BP_SYST 147
[2018-09-11 08:22] LABS: ERYTHROCYTE SEDIMENTATION RATE 24 MM/HR (0-15)
[2018-09-11] MEDS: ASPIRIN 81 MG TAB.CHEW PO SCH (09:26)
[2018-09-11] MEDS: ATORVASTATIN 20 MG TABLET PO SCH (09:26)
[2018-09-11] MEDS: CHOLECALCIFEROL (VITAMIN D3) 2,000 UNIT TABLET PO SCH (09:26)
[2018-09-11] MEDS: cefTRIAXone 1 GM IVPB PREMIX 50 ML IV SCH (09:26)
[2018-09-11] MEDS: PREDNISONE 5 MG TABLET PO SCH (09:27)
[2018-09-11] MEDS: amLODIPine BESYLATE 5 MG TABLET PO SCH (09:27)
[2018-09-11] MEDS: CLOPIDOGREL BISULFATE 75 MG TABLET PO SCH (09:27)
[2018-09-11] MEDS: CARVEDILOL 25 MG TABLET (COREG) PO SCH (09:28)
[2018-09-11] MEDS: INSULIN GLARGINE 100 UNITS/ML 10 ML VIAL SUBCUT SCH (09:29)
[2018-09-11] MEDS: MYCOPHENOLATE MOFETIL 250 MG CAPSULE PO SCH ×2 (10:07)
--- NOTE | 2018-09-11 10:19 | NUR ---
Notes- Report given at [facility] staff.
--- NOTE | 2018-09-11 10:56 | NUR ---
Notes- Discharge patient to [facility]. Denies any pain or discomfort. new iv started on the left arm and removed old IV. discharge packet given to ambulance staff. v/s stable. arm band removed.
[2018-09-12] MEDS ORDERED: MYCO500T PO (03:49)
[2018-09-12] MEDS ORDERED: LISI2.5T48 PO (03:53)
[2018-09-12] MEDS ORDERED: BISA10SU61 RC (03:57)
[2018-09-12] MEDS ORDERED: AMLO5TAB4 PO (03:59)
[2018-09-12] MEDS ORDERED: INSU100V38 SQ (04:02)
--- NOTE | 2018-09-12 16:16 | NUR ---
PHYSICAL THERAPY CO-SIGN The Physical Therapy Progress Notes documented by Pipe Organ Mechanic Apprentice have been reviewed([place] 09/11/18) Reviewed/Co-Signed by: Susana Hendrickson PT Documentation Done by:HUMBERTO BRIONES TEAM LEAD PROGRESSING W/ GAIT ENDURANCE; 09/11/18 [id number] Pt WAS D/C'd 09/11/18; RE ADMIT 09/12/18 Addendum: 09/12/18 at 1617 by Susana Hendrickson PT Amended: Links added.
== END 2018-09-11 10:50 | DRG 871 ==
LOC: SED 09:00 → STU 14:04 → SMU 09-08 17:45
PROVIDERS: ADMIT Preventive Medicine Preventive Medicine/Occupational Environmental Medicine; ATTEND Preventive Medicine Preventive Medicine/Occupational Environmental Medicine
DX: A41.50 Gram-negative sepsis, unspecified (principal); E43 Unspecified severe protein-calorie malnutrition; E87.1 Hypo-osmolality and hyponatremia; I69.351 Hemiplegia and hemiparesis following cerebral infarction affecting right dominant side; N10 Acute pyelonephritis; N17.9 Acute kidney failure, unspecified; D64.9 Anemia, unspecified; E11.21 Type 2 diabetes mellitus with diabetic nephropathy; E11.22 Type 2 diabetes mellitus with diabetic chronic kidney disease; E11.51 Type 2 diabetes mellitus with diabetic peripheral angiopathy without gangrene; E11.65 Type 2 diabetes mellitus with hyperglycemia; E78.5 Hyperlipidemia, unspecified; I13.10 Hypertensive heart and chronic kidney disease without heart failure, with stage 1 through stage 4 chronic kidney disease, or unspecified chronic kidney disease; N18.3 Chronic kidney disease, stage 3 (moderate); J44.9 Chronic obstructive pulmonary disease, unspecified; Z79.899 Other long term (current) drug therapy; Z79.82 Long term (current) use of aspirin; Z68.25 Body mass index [BMI] 25.0-25.9, adult
CPT/HCPCS: 36415; 71045; 76770; 80048; 80053; 81000-TC; 82962; 83605; 83735-TC; 84100-TC; 84484; 85025; 85610-TC; 85651-TC; 85730-TC; 86140; 86710; 87040-TC; 87086; 87186-TC; 93005; 93923; 96361; 96365; 97116-GP; 97530-GP; 99285; G0378; J0696; J1580; J1815; J7030; J7502; J7512; J7517

== ENCOUNTER 2018-09-12 00:33 | Inpatient (IN) | payer OTHER ==
[~2018-09-12] VITALS: Ht 170.2 cm; Wt 68.0 kg
[~2018-09-12 00:33] MED LIST changes: +AMLO5TAB4 PO; +CHOL500052 PO; +CYCL25CA PO; +INSU300I3 SQ; +LISI10TA PO; +PRED5TAB PO; +ROCPM1 IV
[2018-09-12 01:00] VITALS: BP_SYST 148
--- NOTE | 2018-09-12 01:00 | NUR ---
Pt placed to ER bed 05. Pt BIB family members from [facility] requesting that he be admitted. Pt was admitted to [facility] 09/07/18 for UTI then discharged yesterday to [facility] for antibiotic therapy. 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 Pt arrives with 22 GA PIV to [facility] with placement date 09/11/2018.
--- NOTE | 2018-09-12 01:30 | NUR ---
Dr. Elizabeth at bedside.
--- NOTE | 2018-09-12 02:30 | NUR ---
Pt denies c/o pain or discomfort, no needs verbalized at this time. Family members at bedside.
[2018-09-12] MEDS ORDERED: cefTRIAXone 1 GM in D5W 50 ML IV SCH ×2 (03:45→09:00)
[2018-09-12] MEDS ORDERED: MYCO500T PO (03:49)
--- NOTE | 2018-09-12 03:50 | NUR ---
Patient will be admitted to care of Renzo Anderson. Admitted to Med/Surg Obs unit. Will go to room 135. Belongings list completed. Summary report printed. Report will be given at bedside.
[2018-09-12] MEDS ORDERED: LISI2.5T48 PO (03:53)
[2018-09-12] MEDS ORDERED: BISA10SU61 RC (03:57)
[2018-09-12 03:59] VITALS: BP_SYST 159
[2018-09-12] MEDS ORDERED: AMLO5TAB4 PO (03:59)
--- NOTE | 2018-09-12 03:59 | NUR ---
ADMISSION NOTE Received patient from ER via [place] rio. Patient admitted with diagnosis of DEBILITY. Patient oriented to hospital routine, call light, toileting and safety-patient verbalized understanding.
--- NOTE | 2018-09-12 04:01 | NUR ---
Initial note: Received report from ER nurse JESSICA Freitas over phone. Patient arrived via wheelchair, able to transfer to bed with assist. Patient ambulates with assist and cane. 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 IV present to left AC, site is patent and benign. Will continue with plan of care.
[2018-09-12] MEDS ORDERED: INSU100V38 SQ (04:02)
--- NOTE | 2018-09-12 06:02 | NUR ---
Closing note: Patient is resting in bed, no distress. Breathing is even and unlabored on room air. No complaints of pain, shortness of breath, or dizziness. Call light with patient. All needs met. Will endorse to dayshift RN.
[2018-09-12 09:14] VITALS: BP_SYST 163
--- NOTE | 2018-09-12 09:15 | NUR ---
Elevated blood pressure Dr. Tova greenwood denies any headache no dizziness , according to patient that his normal blood pressure in the morning , all home meds continued, discussed plan of care , safety/fall precaution verbalized understanding.
[2018-09-12] MEDS ORDERED: BISACODYL 10 MG/SUPPOSITORY RC PRN (09:30)
[2018-09-12] MEDS ORDERED: MYCOPHENOLATE MOFETIL 250 MG CAPSULE PO ONE (09:30)
[2018-09-12] MEDS: cefTRIAXone 1 GM in D5W 50 ML IV SCH (09:42)
[2018-09-12] MEDS ORDERED: DEXTROSE 50%-WATER 50 ML DISP.SYRIN IVP PRN (09:45)
[2018-09-12] MEDS ORDERED: PREDNISONE 5 MG TABLET PO ONE (09:45)
[2018-09-12] MEDS ORDERED: ASPIRIN 81 MG TAB.CHEW PO ONE (09:45)
[2018-09-12] MEDS ORDERED: CHOLECALCIFEROL (VITAMIN D3) 2,000 UNIT TABLET PO ONE (09:45)
[2018-09-12] MEDS ORDERED: GLUCOSE 15 GM GEL (in 37.5 GM TUBE) PO PRN (09:45)
[2018-09-12] MEDS ORDERED: CARVEDILOL 25 MG TABLET (COREG) PO ONE (09:45)
[2018-09-12] MEDS ORDERED: ATORVASTATIN 10 MG TABLET PO ONE (09:45)
[2018-09-12] MEDS ORDERED: D5W 1,000 ML IV PRN (09:45)
[2018-09-12] MEDS ORDERED: amLODIPine BESYLATE 5 MG TABLET PO ONE (09:45)
[2018-09-12] MEDS ORDERED: cycloSPORINE 100 MG CAPSULE PO ONE (09:45)
[2018-09-12] MEDS ORDERED: CLOPIDOGREL BISULFATE 75 MG TABLET PO ONE (09:45)
[2018-09-12] MEDS ORDERED: INSULIN GLARGINE 100 UNITS/ML 10 ML VIAL SUBCUT ONE (10:00)
--- NOTE | 2018-09-12 11:54 | NUR ---
Nutrition Update Matt Scale 17 noted. Pt admitted for debility. Diet: [facility] BMI: 23.5 kg/m2 RD to follow per nutrition care standards.
[2018-09-12] MEDS: INSULIN LISPRO SLIDING SCALE 100 UNITS/ML VIAL (humaLOG) SUBCUT PRN ×2 (11:56→18:04)
[2018-09-12 12:38] VITALS: BP_SYST 137
--- NOTE | 2018-09-12 14:28 | NUR ---
PATIENT RESTING: Patient resting quietly. No acute distress noted. Vital signs within normal range.
[2018-09-12 17:18] VITALS: BP_SYST 133
[2018-09-12] MEDS ORDERED: HYDROcodone/ACETAMIN 10-325 MG TAB PO PRN (17:30)
[2018-09-12] MEDS ORDERED: ACETAMINOPHEN 325 MG TABLET PO PRN (17:30)
[2018-09-12] MEDS ORDERED: ONDANSETRON HCL 4 MG/2 ML VIAL IVP PRN (17:30)
[2018-09-12] MEDS ORDERED: LORazepam 2 MG/ML VIAL IVP PRN (17:30)
[2018-09-12] MEDS ORDERED: HYDROcodone/ACETAMIN 5-325 MG TAB (NORCO/ VICODIN) PO PRN (17:30)
--- NOTE | 2018-09-12 17:49 | NUR ---
CONSULT ID UTI/BACTEREMIA DR MUHAMMAD [phone] S/W JENNIFER CLAIRE
--- NOTE | 2018-09-12 17:51 | NUR ---
CONSULT NEPHROLOGY RENAL FAILURE DR TOMAS [phone] S/W RUSSELL CLAIRE
--- NOTE | 2018-09-12 19:45 | NUR ---
Initial note: Received report from krysten RN. Patient is awake in bed, no distress. Tolerating room air. IV present to left AC, site is patent and benign. Right upper AV shunt present, but is not being used for dialysis. Call light with patient. Safety and fall precautions in place. Will continue with plan of care.
[2018-09-12 20:40] VITALS: BP_SYST 160
[2018-09-12] MEDS ORDERED: LISINOPRIL 5 MG TABLET PO SCH (21:00)
[2018-09-12] MEDS: MYCOPHENOLATE MOFETIL 250 MG CAPSULE PO SCH (21:13)
[2018-09-12] MEDS: cycloSPORINE 100 MG CAPSULE PO SCH (21:13)
[2018-09-12] MEDS: NORMAL SALINE 5 ML DISP.SYRIN IVF SCH (21:15)
[2018-09-12] MEDS: CARVEDILOL 25 MG TABLET (COREG) PO SCH (21:15)
--- NOTE | 2018-09-12 21:15 | NUR ---
Blood sugar: Patient's blood sugar is 145. No insulin administered per sliding scale.
--- NOTE | 2018-09-12 23:11 | NUR ---
Rounds: Patient is awake in bed. Provided patient with crackers per request. Dressing change done for right forearm skin tear. Safety and fall precautions in place. Call light with patient, will continue to monitor.
[2018-09-13 01:05] VITALS: BP_SYST 153
--- NOTE | 2018-09-13 02:19 | NUR ---
Rounds: Patient is resting in bed, no distress. Breathing is even and unlabored on room air. Call light with patient. Will continue monitoring.
--- NOTE | 2018-09-13 04:50 | NUR ---
Rounds: Patient is sleeping, no distress. Respirations even and unlabored on room air. Call light with patient. Safety and fall precautions in place. Will continue monitoring.
[2018-09-13] MEDS: NORMAL SALINE 5 ML DISP.SYRIN IVF SCH ×2 (06:24→14:25)
[2018-09-13 06:45] LABS: BASOPHILS % (AUTO) 0.4 % (0.0-2.0); EOSINOPHILS # (AUTO) 0.1 K/uL (0.0-0.4); EOSINOPHILS % (AUTO) 0.7 % (0.0-4.0); HEMATOCRIT 40.9 % (36-54); HEMOGLOBIN 13.6 g/dL (14.0-18.0); LYMPHOCYTES # (AUTO) 1.7 K/uL (1.0-5.5); LYMPHOCYTES % (AUTO) 16.6 % (20.5-51.5); MEAN CORPUSCULAR HEMOGLOBIN 30 pg (27-31); MEAN CORPUSCULAR HGB CONC 33 % (32-36); MEAN CORPUSCULAR VOLUME 90 fL (79.0-98.0); MONOCYTES # (AUTO) 0.7 K/uL (0.0-1.0); MONOCYTES % (AUTO) 6.8 % (1.7-9.3); NEUTROPHILS # (AUTO) 7.9 K/uL (1.8-7.7); NEUTROPHILS % (AUTO) 75.5 % (40.0-70.0); PLATELET COUNT (AUTO) 274 K/uL (130-430); RED BLOOD CELL COUNT(AUTO) 4.53 MIL/uL (4.2-6.2); RED CELL DISTRIBUTION WIDTH 13.5 % (9.0-15.0); WHITE BLOOD COUNT (AUTO) 10.4 K/uL (4.8-10.8)
--- NOTE | 2018-09-13 06:49 | NUR ---
Closing note: Patient is awake in bed watching TV, no distress. Tolerating room air. IV site to left AC is patent and benign. Blood sugar this AM is 125. All needs met. Safety, fall precautions in place. Will endorse to krysten RN.
[2018-09-13 07:04] LABS: ALANINE AMINOTRANSFERASE 31 U/L (12-78); ALBUMIN 2.2 g/dL (3.4-4.8); ANION GAP 5 (5-15); ASPARTATE AMINOTRANSFERASE 17 U/L (10-37); C-REACTIVE PROTEIN QUANT 2.2 mg/dL (0-0.5); CALCIUM 9.4 mg/dL (8.4-11.0); CHLORIDE 102 mmol/L (98-107); CREATININE 0.96 mg/dL (0.55-1.30); GLUCOSE 157 mg/dL (70-99); PHOSPHORUS 3.2 mg/dL (2.7-4.5); POTASSIUM 3.6 mmol/L (3.5-5.1); SODIUM SERUM 135 mmol/L (136-145); TOTAL BILIRUBIN 0.6 mg/dL (0.0-1.0); UREA NITROGEN, BLOOD 31 mg/dL (8-21)
--- NOTE | 2018-09-13 07:45 | NUR ---
AM ROUNDS: Oriented x4. Denies discomfort. Has his own cane at the bedside, able to use the bathroom independently. Patient states he feels better. Old right upper shunt has no bruit heared on auscultation. Call light within reach.
[2018-09-13 07:50] LABS: ERYTHROCYTE SEDIMENTATION RATE 15 MM/HR (0-15)
[2018-09-13 08:05] VITALS: BP_SYST 155
[2018-09-13] MEDS ORDERED: PREDNISONE 5 MG TABLET PO SCH (09:00)
[2018-09-13] MEDS ORDERED: ATORVASTATIN 10 MG TABLET PO SCH (09:00)
[2018-09-13] MEDS ORDERED: amLODIPine BESYLATE 5 MG TABLET PO SCH (09:00)
[2018-09-13] MEDS ORDERED: CHOLECALCIFEROL (VITAMIN D3) 2,000 UNIT TABLET PO SCH (09:00)
[2018-09-13] MEDS ORDERED: ASPIRIN 81 MG TAB.CHEW PO SCH (09:00)
[2018-09-13] MEDS ORDERED: INSULIN GLARGINE 100 UNITS/ML 10 ML VIAL SUBCUT SCH (09:00)
[2018-09-13] MEDS ORDERED: CLOPIDOGREL BISULFATE 75 MG TABLET PO SCH (09:00)
[2018-09-13] MEDS: cefTRIAXone 1 GM in D5W 50 ML IV SCH (09:21)
[2018-09-13] MEDS: CARVEDILOL 25 MG TABLET (COREG) PO SCH (09:24)
[2018-09-13] MEDS: cycloSPORINE 100 MG CAPSULE PO SCH (09:25)
[2018-09-13] MEDS: MYCOPHENOLATE MOFETIL 250 MG CAPSULE PO SCH (09:26)
--- NOTE | 2018-09-13 10:31 | NUR ---
Discharge Planning: LAP faxed pt order to [facility] (f [phone] p [phone]) no PT or IV antibiotics prescription available at this time, DCP will faxed when available. Addendum: 09/13/18 at 1127 by Alejandra Patterson DP to [facility] (f [phone] p [phone]) DCP spoke to Nick, he will speak the DON. DIANAP asked if IV medications will be set up by [facility] and Nick stated if patient excepted yes. [facility] faxed [facility] ( f [phone] p [phone]) DCP to follow up. Addendum: 09/13/18 at 1526 by Alejandra Patterson DP [facility] (f [phone] p [phone]) [facility] ( f [phone] p [phone]) [facility] (f [phone] p [phone]) Nurse made aware patient is set to discharge.
--- NOTE | 2018-09-13 11:26 | NUR ---
DC PLANNING Discussed dc plan w Dr Sánchez in [facility]. Ok to dc home w home health for IV Rocephin 1gm QD x7days.
[2018-09-13] MEDS: INSULIN LISPRO SLIDING SCALE 100 UNITS/ML VIAL (humaLOG) SUBCUT PRN (11:36)
[2018-09-13 12:00] VITALS: BP_SYST 145
--- NOTE | 2018-09-13 15:01 | NUR ---
DC PLANNING Discussed dc plan w pt @ bedside, informed working on getting home health for IV abx/PT & fww. States wants to dc home w home health, & wants new FWW, that the one he has is old. While speaking w pt [employer] came in & delivered fww to pt.
--- NOTE | 2018-09-13 15:55 | NUR ---
BS check Patient requested to have his blood sugar checked early, Blood sugar result 68, rechecked Blood sugar result 72. Gave patient orange juice. Patient sitting up in bed at this time. Will continue to monitor
[2018-09-13 16:00] VITALS: BP_SYST 143
--- NOTE | 2018-09-13 16:40 | NUR ---
BS check followup Blood sugar result 101 at this time, patient in stable condition at this time.
--- NOTE | 2018-09-13 17:21 | NUR ---
IV START FOR HOME IV ANTIBIOTICS: Started gauge 22 on the left forearm. Blood return noted on first attempt. secured with tegaderm and tape.
--- NOTE | 2018-09-13 18:11 | NUR ---
end of shift: Needs attended. No change in assessment. Patient is for DC home today, waiting for son to pick him up.
--- NOTE | 2018-09-13 19:05 | NUR ---
D/C Patient Patient given medication reconciliation form and D/C instructions. Exit Care provided. Patient verbalized understanding. MD discussed with patient the results and treatment provided. Ambulatory with steady gait for discharge to home. Patient in stable condition, ID band removed. All belongings sent with patient.
--- NOTE | 2018-09-16 15:50 | NUR ---
Discharge Follow Up Phone Call TERRAZZO INSTALLER phoned patient, . Patient stated he was doing okay. He is happy to be at home and was happy with his care at [facility]. [facility] has been out and administering the IV antibiotics He stated PT will start next week, which he is satisfied about. The nurse is assessing and assisting him. He has been in contact with his PCP and will call when antibiotic course is complete and will make the follow up appointment. No questions or concerns.
== END 2018-09-13 18:58 | disposition home health service (06) | DRG 871 ==
LOC: SED 00:33 → OBSVTOIN 03:14 → SMU 03:14
PROVIDERS: ADMIT Preventive Medicine Preventive Medicine/Occupational Environmental Medicine; ATTEND Preventive Medicine Preventive Medicine/Occupational Environmental Medicine
DX: A41.51 Sepsis due to Escherichia coli [E. coli] (principal); N18.6 End stage renal disease; E43 Unspecified severe protein-calorie malnutrition; N10 Acute pyelonephritis; I12.0 Hypertensive chronic kidney disease with stage 5 chronic kidney disease or end stage renal disease; E87.0 Hyperosmolality and hypernatremia; I69.351 Hemiplegia and hemiparesis following cerebral infarction affecting right dominant side; D64.9 Anemia, unspecified; E11.22 Type 2 diabetes mellitus with diabetic chronic kidney disease; E78.5 Hyperlipidemia, unspecified; E11.65 Type 2 diabetes mellitus with hyperglycemia; Z79.82 Long term (current) use of aspirin; Z79.899 Other long term (current) drug therapy; Z79.02 Long term (current) use of antithrombotics/antiplatelets; Z68.23 Body mass index [BMI] 23.0-23.9, adult
CPT/HCPCS: 36415; 80053; 82962; 83735-TC; 84100-TC; 85025; 85651-TC; 86140; 87081; 99285; J0696; J1815; J7060; J7502; J7512; J7517

== ENCOUNTER 2020-11-17 07:31 | Emergency (ER) | payer OTHER ==
[~2020-11-17] VITALS: Ht 167.6 cm; Wt 72.6 kg
[~2020-11-17 07:31] MED LIST changes: -AMLO5TAB4 PO; +ATOR20TA64 PO; +CARV12.548 PO; -CARV25TA55 PO; -CYCL25CA PO; -INSU100I24 SQ; +INSU100V38 SQ; -INSU300I3 SQ; +LEVO750T45 PO; -LIP10 PO; -LISI10TA5 PO; +PRED10TA PO; -PRED2.5T4 PO; -PRED5TAB PO; -ROCPM1 IV
--- NOTE | 2020-11-17 07:35 | NUR ---
Placed in room 7 . Placed on engagement director, blood pressure machine and pulse oximeter. To gown for exam. Side rails up.
[2020-11-17 07:39] VITALS: BP_SYST 199
--- NOTE | 2020-11-17 07:40 | NUR ---
Pt bib to ER with c/o gen weakness and fatigue x1 week, pt reports having trouble walking. V/S stable, no acute distress noted.
--- NOTE | 2020-11-17 07:45 | NUR ---
ER Dr. Murphy at bedside examining patient.
[2020-11-17] MEDS ORDERED: KETOROLAC TROMETHAMINE 30 MG VIAL IM ONE (08:00)
--- NOTE | 2020-11-17 08:00 | NUR ---
Lab at bedside for blood draw.
[2020-11-17 08:22] LABS: BASOPHILS # (AUTO) 0.1 K/uL (0.0-0.2); BASOPHILS % (AUTO) 0.5 % (0.0-2.0); EOSINOPHILS % (AUTO) 0.4 % (0.0-4.0); HEMATOCRIT 40.4 % (36-54); HEMOGLOBIN 13.2 g/dL (14.0-18.0); LYMPHOCYTES # (AUTO) 0.7 K/uL (1.0-5.5); LYMPHOCYTES % (AUTO) 7.4 % (20.5-51.5); MEAN CORPUSCULAR HEMOGLOBIN 30 pg (27-31); MEAN CORPUSCULAR HGB CONC 33 % (32-36); MEAN CORPUSCULAR VOLUME 91 fL (79.0-98.0); MONOCYTES # (AUTO) 0.5 K/uL (0.0-1.0); MONOCYTES % (AUTO) 5.1 % (1.7-9.3); NEUTROPHILS # (AUTO) 8.6 K/uL (1.8-7.7); NEUTROPHILS % (AUTO) 86.6 % (40.0-70.0); PLATELET COUNT (AUTO) 177 K/uL (130-430); RED BLOOD CELL COUNT(AUTO) 4.42 MIL/uL (4.2-6.2); RED CELL DISTRIBUTION WIDTH 13.4 % (9.0-15.0); WHITE BLOOD COUNT (AUTO) 9.9 K/uL (4.8-10.8)
[2020-11-17 08:32] LABS: ANION GAP 6 (5-15); CALCIUM 9.8 mg/dL (8.4-11.0); CHLORIDE 106 mmol/L (98-107); CREATININE 1.43 mg/dL (0.55-1.30); GLUCOSE 224 mg/dL (70-99); POTASSIUM 3.8 mmol/L (3.5-5.1); SODIUM SERUM 143 mmol/L (136-145); UREA NITROGEN, BLOOD 23 mg/dL (8-21)
[2020-11-17 08:35] LABS: PROTHROMBIN TIME 10.4 SECS (9.5-12.5)
--- NOTE | 2020-11-17 08:35 | NUR ---
Medication reconciliation completed with information provided by pt. Any prior medication reconciliation on file was reviewed and corrected.
[2020-11-17 08:38] LABS: ALANINE AMINOTRANSFERASE 12 U/L (12-78); ASPARTATE AMINOTRANSFERASE 14 U/L (10-37); TOTAL BILIRUBIN 0.7 mg/dL (0.0-1.0)
[2020-11-17 08:42] LABS: BILIRUBIN,URINE NEGATIVE (NEGATIVE); BLOOD, URINE NEGATIVE (NEGATIVE); CLARITY/URINE CLOUDY (CLEAR); COLOR,URINE YELLOW (YELLOW); GLUCOSE,URINE 2+ (NEGATIVE); KETONES,URINE NEGATIVE (NEGATIVE); LEUKOCYTE ESTERASE ,URINE TRACE (NEGATIVE); NITRITE, URINE NEGATIVE (NEGATIVE); PROTEIN URINE 3+ (NEGATIVE)
[2020-11-17 08:44] LABS: ACETONE, SERUM NEGATIVE (NEGATIVE)
[2020-11-17 09:00] LABS: BACTERIA,URINE RARE /HPF (None Seen); RBC,URINE 0-3 /HPF (0-3); TRIPLE PHOSPHATE CRYSTAL,UR 0-10 /HPF (None Seen); URINE AMORPHOUS PHOSPHATES 3+ /HPF (None Seen)
[2020-11-17] MEDS ORDERED: HYDR-3917 PO (09:34)
--- NOTE | 2020-11-17 09:50 | NUR ---
Patient given written and verbal discharge instructions and verbalizes understanding. ER MD discussed with patient the results and treatment provided. Patient in stable condition. ID arm band removed. Rx of [place] given. Patient educated on pain management and to follow up with PMD. Pain Scale 0. Opportunity for questions provided and answered. Medication side effect fact sheet provided.
== END 2020-11-17 09:50 | disposition home or self-care (01) ==
LOC: SED 07:31
DX: R53.1 Weakness (principal); M54.30 Sciatica, unspecified side; I10 Essential (primary) hypertension; E11.9 Type 2 diabetes mellitus without complications; Z79.899 Other long term (current) drug therapy
CPT/HCPCS: 36415; 71045; 80053; 81000; 82009; 82550; 83605; 84484; 85025; 85610; 85730; 96372; 99284; J1885; 76376; 99285

== ENCOUNTER 2021-01-05 07:45 | Emergency (ER) | payer OTHER ==
[~2021-01-05] VITALS: Ht 170.2 cm; Wt 63.5 kg
[2021-01-05 07:45] VITALS: BP_SYST 119
[~2021-01-05 07:45] MED LIST changes: +HYDR-3917 PO; -LEVO750T45 PO
[2021-01-05 08:42] LABS: BASOPHILS % (AUTO) 0.7 % (0.0-2.0); EOSINOPHILS # (AUTO) 0.1 K/uL (0.0-0.4); HEMATOCRIT 36.5 % (36-54); HEMOGLOBIN 12.2 g/dL (14.0-18.0); LYMPHOCYTES # (AUTO) 1.2 K/uL (1.0-5.5); LYMPHOCYTES % (AUTO) 16.8 % (20.5-51.5); MEAN CORPUSCULAR HEMOGLOBIN 31 pg (27-31); MEAN CORPUSCULAR HGB CONC 33 % (32-36); MEAN CORPUSCULAR VOLUME 92 fL (79.0-98.0); MONOCYTES # (AUTO) 0.6 K/uL (0.0-1.0); MONOCYTES % (AUTO) 8.9 % (1.7-9.3); NEUTROPHILS # (AUTO) 5.1 K/uL (1.8-7.7); NEUTROPHILS % (AUTO) 72.6 % (40.0-70.0); PLATELET COUNT (AUTO) 200 K/uL (130-430); RED BLOOD CELL COUNT(AUTO) 3.98 MIL/uL (4.2-6.2); RED CELL DISTRIBUTION WIDTH 13.5 % (9.0-15.0)
[2021-01-05 08:56] LABS: ANION GAP 4 (5-15); CALCIUM 10.8 mg/dL (8.4-11.0); CHLORIDE 102 mmol/L (98-107); CREATININE 1.63 mg/dL (0.55-1.30); GLUCOSE 150 mg/dL (70-99); POTASSIUM 4.4 mmol/L (3.5-5.1); SODIUM SERUM 138 mmol/L (136-145); UREA NITROGEN, BLOOD 37 mg/dL (8-21)
[2021-01-05 09:00] LABS: PROTHROMBIN TIME 10.5 SECS (9.5-12.5)
[2021-01-05 09:02] LABS: ALANINE AMINOTRANSFERASE 15 U/L (12-78); ALBUMIN 2.8 g/dL (3.4-4.8); ASPARTATE AMINOTRANSFERASE 11 U/L (10-37); TOTAL BILIRUBIN 0.6 mg/dL (0.0-1.0)
[2021-01-05 09:09] LABS: ACETONE, SERUM NEGATIVE (NEGATIVE)
--- NOTE | 2021-01-05 09:14 | NUR ---
BROUGHT BACK TO BED #5 VIA WHEELCHAIR, PLACED IN BED AND REPORT GIVEN TO SANDRA
--- NOTE | 2021-01-05 09:14 | NUR ---
MD HAND ASSESSING PT AT BEDSIDE.
--- NOTE | 2021-01-05 10:33 | NUR ---
PT LABS HAVE BEEN REVIEWED BY , AND PT IS NOW BEING PREPARED FOR DC HOME.
[2021-01-05 10:52] VITALS: BP_SYST 119
--- NOTE | 2021-01-05 10:52 | NUR ---
Patient given written and verbal discharge instructions and verbalizes understanding. ER MD discussed with patient the results and treatment provided. Patient in stable condition. ID arm band removed. given. Patient educated on pain management and to follow up with PMD. Pain Scale 0/10. Opportunity for questions provided and answered. Medication side effect fact sheet provided.
== END 2021-01-05 10:52 | disposition home or self-care (01) ==
LOC: SED 07:45
DX: R53.1 Weakness (principal); I10 Essential (primary) hypertension; E11.9 Type 2 diabetes mellitus without complications; Z79.82 Long term (current) use of aspirin; Z79.899 Other long term (current) drug therapy
CPT/HCPCS: 36415; 71045; 80053; 82009; 82550; 83605; 84484; 85025; 85610-TC; 85730-TC; 93005; 99285

== ENCOUNTER 2021-01-13 19:52 | Inpatient (IN) | payer OTHER, SELFPAY ==
[~2021-01-13] VITALS: Ht 167.6 cm; Wt 64.9 kg
[2021-01-13 20:10] VITALS: BP_SYST 162
[2021-01-13 20:24] LABS: BASOPHILS % (AUTO) 0.3 % (0.0-2.0); EOSINOPHILS % (AUTO) 0.1 % (0.0-4.0); HEMATOCRIT 34.6 % (36-54); HEMOGLOBIN 11.7 g/dL (14.0-18.0); MEAN CORPUSCULAR HEMOGLOBIN 31 pg (27-31); MEAN CORPUSCULAR HGB CONC 34 % (32-36); MEAN CORPUSCULAR VOLUME 91 fL (79.0-98.0); MONOCYTES # (AUTO) 0.5 K/uL (0.0-1.0); MONOCYTES % (AUTO) 7.3 % (1.7-9.3); NEUTROPHILS # (AUTO) 5.7 K/uL (1.8-7.7); NEUTROPHILS % (AUTO) 78.3 % (40.0-70.0); PLATELET COUNT (AUTO) 176 K/uL (130-430); RED CELL DISTRIBUTION WIDTH 13.5 % (9.0-15.0); WHITE BLOOD COUNT (AUTO) 7.3 K/uL (4.8-10.8)
[2021-01-13] MEDS ORDERED: LR 1,000 ML IV ONE (20:30)
[2021-01-13 20:32] LABS: PROTHROMBIN TIME 10.9 SECS (9.5-12.5)
[2021-01-13 20:33] LABS: ANION GAP 1 (5-15); CHLORIDE 104 mmol/L (98-107); CREATININE 1.78 mg/dL (0.55-1.30); GLUCOSE 148 mg/dL (70-99); POTASSIUM 4.2 mmol/L (3.5-5.1); SODIUM SERUM 139 mmol/L (136-145); UREA NITROGEN, BLOOD 29 mg/dL (8-21)
[2021-01-13 20:48] LABS: ALANINE AMINOTRANSFERASE 10 U/L (12-78); ALBUMIN 2.8 g/dL (3.4-4.8); ASPARTATE AMINOTRANSFERASE 9 U/L (10-37); BILIRUBIN,DIRECT 0.3 mg/dL (0.0-0.3); FREE T4 (FREE THYROXINE) 1.1 ng/dl (0.8-1.5); LIPASE 44 U/L (73-393); THYROID STIMULATING HORMONE 0.41 uIu/mL (0.36-3.74); TOTAL BILIRUBIN 0.9 mg/dL (0.0-1.0)
[2021-01-13 20:51] LABS: CALCIUM 13.4 mg/dL (8.4-11.0)
[2021-01-13] MEDS ORDERED: NACL 0.9% 2,000 ML IV ONE (21:00)
[2021-01-13 21:12] LABS: PHOSPHORUS 2.9 mg/dL (2.7-4.5); URIC ACID 8.9 mg/dL (2.4-7.0)
[2021-01-13] MEDS: NACL 0.9% 1,000 ML IV SCH (22:15)
[2021-01-14] MEDS: INSULIN REGULAR, HUMAN 100 UNITS/ML, 10 ML VIAL (humuLIN R) SUBCUT SCH ×5 (03:00→20:44)
[2021-01-14] MEDS ORDERED: ONDANSETRON HCL 4 MG/2 ML VIAL IVP ONE (05:15)
[2021-01-14] MEDS ORDERED: fentaNYL CITRATE/PF 100 MCG/2 ML AMP IVP ONE (05:15)
[2021-01-14] MEDS ORDERED: fentaNYL CITRATE/PF 100 MCG/2 ML AMP ONE (05:41)
[2021-01-14 06:44] LABS: BASOPHILS % (AUTO) 0.6 % (0.0-2.0); EOSINOPHILS % (AUTO) 0.6 % (0.0-4.0); HEMATOCRIT 33.9 % (36-54); HEMOGLOBIN 11.9 g/dL (14.0-18.0); LYMPHOCYTES # (AUTO) 1.2 K/uL (1.0-5.5); LYMPHOCYTES % (AUTO) 17.9 % (20.5-51.5); MEAN CORPUSCULAR HEMOGLOBIN 32 pg (27-31); MEAN CORPUSCULAR HGB CONC 35 % (32-36); MEAN CORPUSCULAR VOLUME 91 fL (79.0-98.0); MONOCYTES # (AUTO) 0.7 K/uL (0.0-1.0); MONOCYTES % (AUTO) 9.8 % (1.7-9.3); NEUTROPHILS % (AUTO) 71.1 % (40.0-70.0); PLATELET COUNT (AUTO) 173 K/uL (130-430); RED BLOOD CELL COUNT(AUTO) 3.73 MIL/uL (4.2-6.2); RED CELL DISTRIBUTION WIDTH 13.3 % (9.0-15.0)
[2021-01-14] MEDS: NACL 0.9% 1,000 ML IV SCH ×3 (07:09→20:30)
[2021-01-14 08:09] LABS: BILIRUBIN,URINE NEGATIVE (NEGATIVE); BLOOD, URINE NEGATIVE (NEGATIVE); CLARITY/URINE SLIGHTLY HAZY (CLEAR); COLOR,URINE YELLOW (YELLOW); GLUCOSE,URINE NEGATIVE (NEGATIVE); KETONES,URINE NEGATIVE (NEGATIVE); LEUKOCYTE ESTERASE ,URINE NEGATIVE (NEGATIVE); NITRITE, URINE NEGATIVE (NEGATIVE); PH,URINE 7.5 (5.0-8.0); PROTEIN URINE 2+ (NEGATIVE)
[2021-01-14 09:48] LABS: ANION GAP 1 (5-15); CALCIUM 11.7 mg/dL (8.4-11.0); CHLORIDE 106 mmol/L (98-107); CREATININE 1.39 mg/dL (0.55-1.30); GLUCOSE 120 mg/dL (70-99); POTASSIUM 3.6 mmol/L (3.5-5.1); SODIUM SERUM 141 mmol/L (136-145); TOTAL BILIRUBIN 0.9 mg/dL (0.0-1.0); UREA NITROGEN, BLOOD 23 mg/dL (8-21)
[2021-01-14 09:49] LABS: ALANINE AMINOTRANSFERASE 15 U/L (12-78); ALBUMIN 2.5 g/dL (3.4-4.8); ASPARTATE AMINOTRANSFERASE 11 U/L (10-37)
[2021-01-14 09:59] VITALS: BP_SYST 117
[2021-01-14 12:20] LABS: BACTERIA,URINE FEW /HPF (None Seen); RBC,URINE 0-3 /HPF (0-3); WBC,URINE 0-3 /HPF (0-3)
[2021-01-14 12:21] LABS: MUCUS,URINE 1+ /LPF (None Seen); URINE AMORPHOUS PHOSPHATES 1+ /HPF (None Seen)
[2021-01-14 16:38] VITALS: BP_SYST 122
[2021-01-14] MEDS ORDERED: ASPIRIN 81 MG TAB.CHEW PO ONE (17:00)
[2021-01-14] MEDS ORDERED: CLOPIDOGREL BISULFATE 75 MG TABLET PO ONE (17:00)
[2021-01-14] MEDS ORDERED: predniSONE 10 MG TABLET PO ONE (17:00)
[2021-01-14] MEDS ORDERED: LISINOPRIL 10 MG TABLET (PRINIVIL) PO ONE (17:00)
[2021-01-14] MEDS ORDERED: mycophenolate mofetiL 250 MG CAPSULE PO ONE ×2 (17:00)
[2021-01-14] MEDS ORDERED: CARVEDILOL 12.5 MG TABLET (COREG) PO ONE (17:00)
[2021-01-14] MEDS ORDERED: ATORVASTATIN 20 MG TABLET PO ONE (17:00)
[2021-01-14] MEDS ORDERED: MAGNESIUM SULFATE 3 GM in D5W 100 ML IV ONE (17:15)
[2021-01-14] MEDS: cycloSPORINE 100 MG CAPSULE PO SCH (17:41)
[2021-01-14 19:00] VITALS: BP_SYST 158
[2021-01-14 20:00] VITALS: BP_SYST 158
[2021-01-14] MEDS: INSULIN GLARGINE 100 UNITS/ML 10 ML VIAL SUBCUT SCH (20:45)
[2021-01-15] VITALS: BP_SYST 145
[2021-01-15] MEDS: NACL 0.9% 1,000 ML IV SCH ×4 (00:55→21:40)
[2021-01-15 01:11] LABS: BILIRUBIN,URINE NEGATIVE (NEGATIVE); BLOOD, URINE NEGATIVE (NEGATIVE); CLARITY/URINE SL CLOUDY (CLEAR); COLOR,URINE YELLOW (YELLOW); GLUCOSE,URINE NEGATIVE (NEGATIVE); KETONES,URINE NEGATIVE (NEGATIVE); LEUKOCYTE ESTERASE ,URINE NEGATIVE (NEGATIVE); NITRITE, URINE NEGATIVE (NEGATIVE); PROTEIN URINE 2+ (NEGATIVE)
[2021-01-15] MEDS: INSULIN REGULAR, HUMAN 100 UNITS/ML, 10 ML VIAL (humuLIN R) SUBCUT SCH ×5 (03:00→21:48)
[2021-01-15 07:07] LABS: BASOPHILS % (AUTO) 0.2 % (0.0-2.0); HEMATOCRIT 34.4 % (36-54); HEMOGLOBIN 11.7 g/dL (14.0-18.0); LYMPHOCYTES # (AUTO) 0.8 K/uL (1.0-5.5); LYMPHOCYTES % (AUTO) 12.2 % (20.5-51.5); MEAN CORPUSCULAR HEMOGLOBIN 31 pg (27-31); MEAN CORPUSCULAR HGB CONC 34 % (32-36); MEAN CORPUSCULAR VOLUME 90 fL (79.0-98.0); MONOCYTES # (AUTO) 0.4 K/uL (0.0-1.0); MONOCYTES % (AUTO) 5.9 % (1.7-9.3); NEUTROPHILS # (AUTO) 5.6 K/uL (1.8-7.7); NEUTROPHILS % (AUTO) 81.7 % (40.0-70.0); PLATELET COUNT (AUTO) 174 K/uL (130-430); RED BLOOD CELL COUNT(AUTO) 3.81 MIL/uL (4.2-6.2); RED CELL DISTRIBUTION WIDTH 13.2 % (9.0-15.0); WHITE BLOOD COUNT (AUTO) 6.9 K/uL (4.8-10.8)
[2021-01-15 07:28] LABS: ANION GAP 2 (5-15); CALCIUM 10.6 mg/dL (8.4-11.0); CHLORIDE 103 mmol/L (98-107); CREATININE 1.51 mg/dL (0.55-1.30); GLUCOSE 97 mg/dL (70-99); POTASSIUM 3.8 mmol/L (3.5-5.1); SODIUM SERUM 138 mmol/L (136-145); UREA NITROGEN, BLOOD 22 mg/dL (8-21)
[2021-01-15 07:53] VITALS: BP_SYST 150
[2021-01-15] MEDS: ATORVASTATIN 20 MG TABLET PO SCH (08:17)
[2021-01-15] MEDS: predniSONE 10 MG TABLET PO SCH (08:17)
[2021-01-15] MEDS: CARVEDILOL 12.5 MG TABLET (COREG) PO SCH ×2 (08:18→21:41)
[2021-01-15] MEDS: ASPIRIN 81 MG TAB.CHEW PO SCH (08:18)
[2021-01-15] MEDS: CLOPIDOGREL BISULFATE 75 MG TABLET PO SCH (08:18)
[2021-01-15] MEDS: LISINOPRIL 10 MG TABLET (PRINIVIL) PO SCH (08:19)
[2021-01-15] MEDS: mycophenolate mofetiL 250 MG CAPSULE PO SCH ×2 (08:29→21:41)
[2021-01-15] MEDS: cycloSPORINE 100 MG CAPSULE PO SCH (08:30)
[2021-01-15] MEDS: ACETAMINOPHEN 325 MG TABLET PO PRN (08:57)
[2021-01-15] MEDS ORDERED: ACETAMINOPHEN 325 MG TABLET PO PRN (09:00)
[2021-01-15 11:55] LABS: URINE SODIUM, RANDOM 137 mmol/L (40-220)
[2021-01-15] MEDS ORDERED: MEGESTROL ACETATE 400 MG/10 ML UDC PO ONE (13:15)
[2021-01-15] MEDS: MEGESTROL ACETATE 400 MG/10 ML UDC PO SCH (14:17)
[2021-01-15 15:27] VITALS: BP_SYST 146
[2021-01-15] MEDS ORDERED: D5W 1,000 ML IV PRN (16:45)
[2021-01-15] MEDS ORDERED: DEXTROSE 50%-WATER 50 ML DISP.SYRIN IVP PRN (16:45)
[2021-01-15] MEDS ORDERED: GLUCOSE (DEXTROSE) ORAL GEL -Adults PO PRN (16:45)
[2021-01-15 20:00] VITALS: BP_SYST 154
[2021-01-15] MEDS: INSULIN GLARGINE 100 UNITS/ML 10 ML VIAL SUBCUT SCH (21:47)
[2021-01-16] VITALS: BP_SYST 138
[2021-01-16] MEDS: INSULIN REGULAR, HUMAN 100 UNITS/ML, 10 ML VIAL (humuLIN R) SUBCUT SCH ×5 (03:00→21:00)
[2021-01-16 06:33] LABS: ANION GAP 5 (5-15); CALCIUM 8.9 mg/dL (8.4-11.0); CHLORIDE 108 mmol/L (98-107); CREATININE 1.45 mg/dL (0.55-1.30); GLUCOSE 106 mg/dL (70-99); POTASSIUM 3.8 mmol/L (3.5-5.1); SODIUM SERUM 141 mmol/L (136-145); UREA NITROGEN, BLOOD 20 mg/dL (8-21)
[2021-01-16] MEDS: ACETAMINOPHEN 325 MG TABLET PO PRN ×2 (06:33→18:44)
[2021-01-16 07:51] VITALS: BP_SYST 165
[2021-01-16] MEDS: MEGESTROL ACETATE 400 MG/10 ML UDC PO SCH (08:01)
[2021-01-16] MEDS: ATORVASTATIN 20 MG TABLET PO SCH (08:02)
[2021-01-16] MEDS: CLOPIDOGREL BISULFATE 75 MG TABLET PO SCH (08:02)
[2021-01-16] MEDS: ASPIRIN 81 MG TAB.CHEW PO SCH (08:02)
[2021-01-16] MEDS: LISINOPRIL 10 MG TABLET (PRINIVIL) PO SCH (08:03)
[2021-01-16] MEDS: CARVEDILOL 12.5 MG TABLET (COREG) PO SCH ×2 (08:03→21:51)
[2021-01-16] MEDS: mycophenolate mofetiL 250 MG CAPSULE PO SCH ×2 (08:04→21:51)
[2021-01-16] MEDS: cycloSPORINE 100 MG CAPSULE PO SCH (08:04)
[2021-01-16] MEDS: predniSONE 10 MG TABLET PO SCH (08:05)
[2021-01-16] MEDS: NACL 0.9% 1,000 ML IV SCH ×2 (08:05→18:44)
[2021-01-16 16:28] VITALS: BP_SYST 165
[2021-01-16 20:00] VITALS: BP_SYST 159
[2021-01-16] MEDS: INSULIN GLARGINE 100 UNITS/ML 10 ML VIAL SUBCUT SCH (21:00)
[2021-01-17] VITALS: BP_SYST 148
[2021-01-17] MEDS: INSULIN REGULAR, HUMAN 100 UNITS/ML, 10 ML VIAL (humuLIN R) SUBCUT SCH ×2 (03:18→06:32)
[2021-01-17 08:00] VITALS: BP_SYST 201
[2021-01-17] MEDS: MEGESTROL ACETATE 400 MG/10 ML UDC PO SCH (08:39)
[2021-01-17] MEDS: ASPIRIN 81 MG TAB.CHEW PO SCH (08:39)
[2021-01-17] MEDS: mycophenolate mofetiL 250 MG CAPSULE PO SCH (08:39)
[2021-01-17] MEDS: CARVEDILOL 12.5 MG TABLET (COREG) PO SCH (08:39)
[2021-01-17] MEDS: predniSONE 10 MG TABLET PO SCH (08:39)
[2021-01-17] MEDS: ATORVASTATIN 20 MG TABLET PO SCH (08:39)
[2021-01-17] MEDS: CLOPIDOGREL BISULFATE 75 MG TABLET PO SCH (08:40)
[2021-01-17] MEDS: LISINOPRIL 10 MG TABLET (PRINIVIL) PO SCH (08:40)
[2021-01-17] MEDS: cycloSPORINE 100 MG CAPSULE PO SCH (09:27)
[2021-01-17] MEDS: NACL 0.9% 1,000 ML IV SCH (09:32)
[2021-01-17 12:41] VITALS: BP_SYST 151
[2021-01-17 16:31] VITALS: BP_SYST 150
[2021-01-17 18:30] VITALS: BP_SYST 150
[2021-01-22 10:05] LABS: HEMOGLOBIN A1C 7.6 % (4.8-5.6)
[2021-01-22 10:09] LABS: CALCIUM, IONIZED 7.4 mg/dL (4.5-5.6)
[2021-01-22 10:12] LABS: PTH, INTACT 8 pg/mL (15-65)
[2021-01-22 10:41] LABS: CREATININE, URINE 33.5 mg/dL; MICROALBUMIN URINE RANDOM 819.1 ug/ml (NOT ESTABLISHED)
[2021-01-24 11:53] LABS: VIT D,1, 25-DIHYDROXY 7.6 pg/mL (19.9-79.3)
[2021-01-27 14:06] LABS: PTH RELATED PEPTIDE <2.0 pmol/L (.)
== END 2021-01-17 19:00 | disposition home or self-care (01) | DRG 698 ==
LOC: SED 19:52 → STU 22:07
PROVIDERS: ADMIT Internal Medicine; ATTEND Internal Medicine
DX: T86.19 Other complication of kidney transplant (principal); E43 Unspecified severe protein-calorie malnutrition; N17.9 Acute kidney failure, unspecified; I69.351 Hemiplegia and hemiparesis following cerebral infarction affecting right dominant side; Z94.0 Kidney transplant status; E86.0 Dehydration; T45.2X5A Adverse effect of vitamins, initial encounter; E83.52 Hypercalcemia; E83.42 Hypomagnesemia; E78.5 Hyperlipidemia, unspecified; I12.9 Hypertensive chronic kidney disease with stage 1 through stage 4 chronic kidney disease, or unspecified chronic kidney disease; E11.22 Type 2 diabetes mellitus with diabetic chronic kidney disease; N18.9 Chronic kidney disease, unspecified; Z20.822 Contact with and (suspected) exposure to COVID-19; Z87.440 Personal history of urinary (tract) infections; Y92.89 Other specified places as the place of occurrence of the external cause
CPT/HCPCS: 36415; 70450-TC; 76376; 80048; 80053; 80076; 80158; 81000; 81003; 82043; 82306; 82330; 82550; 82570; 82962; 83036; 83519; 83690; 83735; 83880; 83970; 84100; 84302; 84439; 84443; 84484; 84550; 85025; 85610-TC; 93005; 96361; 96374; 96375; 97116-GP; 97530-GP; 99285; G0378; J1815; J2405; J3010; J3475; J7060; J7502; J7512; J7517